=== PATIENT | male | born 1950 | race Caucasian/White ===

== ENCOUNTER → 2016-08-30 | Outpatient (CLI) | payer MEDICARE, BC ==
[2016-08-30 09:05] LABS: ABSOLUTE EOSINOPHILS # (AUTO) 0.3 10^3/uL (0.0-0.6); ABSOLUTE MONOCYTES (AUTO) 0.8 10^3/uL (0.1-1.4); ABSOLUTE NEUT (AUTO) 6.4 10^3/uL (1.7-8.2); BASOPHILS % (AUTO) 0.4 % (0-2); HEMATOCRIT 47.5 % (37.9-51.0); HEMOGLOBIN 16.1 g/dL (13.5-17.0); HGB HCT DIFFERENCE 0.8; LYMPHOCYTES % (AUTO) 20.8 % (13-45); MEAN CORPUSCULAR HEMOGLOBIN 32.9 pg (27.0-33.4); MEAN CORPUSCULAR HGB CONC 33.8 g/dL (32.0-36.0); MEAN CORPUSCULAR VOLUME 97 fl (80-97); MONOCYTES % (AUTO) 8.9 % (3-13); RED BLOOD COUNT 4.88 10^6/uL (4.35-5.55); RED CELL DISTRIBUTION WIDTH 13.1 % (11.5-14.0); SEGMENTED NEUTROPHILS % (AUTO) 66.9 % (42-78); WHITE BLOOD COUNT 9.5 10^3/uL (4.0-10.5)
[2016-08-30 09:21] LABS: ALANINE AMINOTRANSFERASE 116 U/L (21-72); ALBUMIN 4.4 g/dL (3.5-5.0); ALKALINE PHOSPHATASE 71 U/L (38-126); ANION GAP 9 (5-19); ASPARTATE AMINO TRANSFERASE 68 U/L (17-59); BILIRUBIN,TOTAL 1.1 mg/dL (0.2-1.3); BLOOD UREA NITROGEN 12 mg/dL (7-20); CALCIUM 10.2 mg/dL (8.4-10.2); CARBON DIOXIDE 28 mmol/L (22-30); CHLORIDE 100 mmol/L (98-107); CHOLESTEROL 247.83 mg/dL (0-200); CREATININE RESULT 0.99 mg/dL (0.52-1.25); Direct HDL 59 mg/dL (>40); GLUCOSE 107 mg/dL (75-110); POTASSIUM 4.9 mmol/L (3.6-5.0); SODIUM 137.3 mmol/L (137-145); TOTAL PROTEIN 7.4 g/dL (6.3-8.2); TRIGLYCERIDES 66 mg/dL (<150)
[2016-08-30 09:32] LABS: DIRECT LDL 164 mg/dL (<100)
== END ==
LOC: OD 08:19
PROVIDERS: ATTEND Family Medicine
DX: Z79.899 Other long term (current) drug therapy (principal); E78.5 Hyperlipidemia, unspecified; R73.9 Hyperglycemia, unspecified
CPT/HCPCS: 36415; 80053; 80061; 83036; 84443; 85025

== ENCOUNTER → 2017-09-10 | Outpatient (CLI) | payer MEDICARE, BC ==
[2017-09-10 09:09] LABS: ABSOLUTE EOSINOPHILS # (AUTO) 0.2 10^3/uL (0.0-0.6); ABSOLUTE MONOCYTES (AUTO) 0.7 10^3/uL (0.1-1.4); ABSOLUTE NEUT (AUTO) 5.3 10^3/uL (1.7-8.2); BASOPHILS % (AUTO) 0.5 % (0-2); EOSINOPHILS % (AUTO) 2.1 % (0-6); HEMATOCRIT 49.4 % (37.9-51.0); HEMOGLOBIN 16.6 g/dL (13.5-17.0); LYMPHOCYTES % (AUTO) 24.1 % (13-45); MEAN CORPUSCULAR HEMOGLOBIN 33.1 pg (27.0-33.4); MEAN CORPUSCULAR HGB CONC 33.6 g/dL (32.0-36.0); MEAN CORPUSCULAR VOLUME 99 fl (80-97); MONOCYTES % (AUTO) 8.2 % (3-13); PLATELET COUNT 264 10^3/uL (150-450); RED CELL DISTRIBUTION WIDTH 13.3 % (11.5-14.0); SEGMENTED NEUTROPHILS % (AUTO) 65.1 % (42-78); TOTAL CELLS COUNTED % (AUTO) 100 %; WHITE BLOOD COUNT 8.1 10^3/uL (4.0-10.5)
[2017-09-10 09:33] LABS: ALANINE AMINOTRANSFERASE 103 U/L (21-72); ALBUMIN 4.4 g/dL (3.5-5.0); ALKALINE PHOSPHATASE 78 U/L (38-126); ANION GAP 9 (5-19); ASPARTATE AMINO TRANSFERASE 65 U/L (17-59); BILIRUBIN,DIRECT 0.5 mg/dL (0.0-0.4); BLOOD UREA NITROGEN 12 mg/dL (7-20); CALCIUM 10.2 mg/dL (8.4-10.2); CARBON DIOXIDE 28 mmol/L (22-30); CHLORIDE 101 mmol/L (98-107); GLUCOSE 110 mg/dL (75-110); POTASSIUM 4.7 mmol/L (3.6-5.0); TOTAL PROTEIN 7.4 g/dL (6.3-8.2); TRIGLYCERIDES 84 mg/dL (<150)
[2017-09-10 09:44] LABS: DIRECT LDL 163 mg/dL (<100)
== END ==
LOC: OD 07:50
PROVIDERS: ATTEND Family Medicine
DX: E78.5 Hyperlipidemia, unspecified (principal); R73.9 Hyperglycemia, unspecified; Z12.5 Encounter for screening for malignant neoplasm of prostate; B18.2 Chronic viral hepatitis C; Z79.82 Long term (current) use of aspirin
CPT/HCPCS: 36415; 84443; 85025; 80076; 80048; 83036; 80061; G0103

== ENCOUNTER 2017-11-05 10:26 | Emergency (ER) | payer MEDICARE, BC ==
--- NOTE | 2017-11-05 10:45 | ER Document Report ---
ED Medical Screen (RME) - General Chief Complaint: Abdominal Pain Stated Complaint: STOMACH PAIN Time Seen by Provider: 11/05/17 10:39 Notes: 67-year-old male with history of bladder cancer now followed by urologist at [facility], presents with 1 day of worsening suprapubic pain and is worse with palpation and movement. Took his home [place] prior to arrival and declines additional pain medicine at this time. PE: Suprapubic tenderness. I have greeted and performed a rapid initial assessment of this patient. A comprehensive ED assessment and evaluation of the patient, analysis of test results and completion of the medical decision making process will be conducted by additional ED providers. TRAVEL OUTSIDE OF THE [place] IN LAST 30 DAYS: No - Related Data Allergies/Adverse Reactions: No Known Allergies Allergy (Verified 11/01/15 08:58) Past Medical History - Social History Chew tobacco use (# tins/day): No Frequency of alcohol use: None Drug Abuse: None - Past Medical History Cardiac Medical History: Reports: Hx Coronary Artery Disease - Stent 2001, Hx Heart Attack - 2001, Hx Hypercholesterolemia Denies: Hx Hypertension Pulmonary Medical History: Reports: Hx Asthma - CHILDHOOD, Hx COPD Denies: Hx Bronchitis, Hx Pneumonia Neurological Medical History: Denies: Hx Cerebrovascular Accident, Hx Seizures Renal/ Medical History: Denies: Hx Peritoneal Dialysis Musculoskeltal Medical History: Reports Hx Arthritis - Rheumatoid in back, pelvis, hips Past Surgical History: Reports: Hx Appendectomy, Hx Cardiac Catheterization - 1X stent, Hx Tonsillectomy - Immunizations Hx Diphtheria, Pertussis, Tetanus Vaccination: Yes Physical Exam - Vital signs Vitals: Temp Pulse Resp BP Pulse Ox 98.3 F 82 20 148/90 H 93 11/05/17 10:29 11/05/17 10:11/05/17 10:11/05/17 10:29 11/05/17 10:29 Course - Vital Signs Vital signs: Temp Pulse Resp BP Pulse Ox 98.3 F 82 20 148/90 H 93 11/05/17 10:29 11/05/17 10:29 11/05/17 10:29 11/05/17 10:29 11/05/17 10:29
[2017-11-05 11:17] LABS: APPEARANCE,URINE CLEAR; BILIRUBIN,URINE NEGATIVE (NEGATIVE); COLOR,URINE YELLOW; GLUCOSE, URINE NEGATIVE (NEGATIVE); KETONES,URINE NEGATIVE (NEGATIVE); LEUKOCYTE ESTERASE,URINE NEGATIVE (NEGATIVE); NITRITE,URINE NEGATIVE (NEGATIVE); PROTEIN,URINE NEGATIVE (NEGATIVE); URINE SPECIFIC GRAVITY 1.018
[2017-11-05 11:21] LABS: ABSOLUTE BASOPHILS # (AUTO) 0.1 10^3/uL (0.0-0.2); ABSOLUTE EOSINOPHILS # (AUTO) 0.2 10^3/uL (0.0-0.6); ABSOLUTE LYMPHOCYTES (AUTO) 2.4 10^3/uL (0.5-4.7); ABSOLUTE MONOCYTES (AUTO) 1.1 10^3/uL (0.1-1.4); BASOPHILS % (AUTO) 0.7 % (0-2); EOSINOPHILS % (AUTO) 1.7 % (0-6); HEMATOCRIT 50.4 % (37.9-51.0); HEMOGLOBIN 17.2 g/dL (13.5-17.0); LYMPHOCYTES % (AUTO) 20.5 % (13-45); MEAN CORPUSCULAR HEMOGLOBIN 33.1 pg (27.0-33.4); MEAN CORPUSCULAR HGB CONC 34.1 g/dL (32.0-36.0); MEAN CORPUSCULAR VOLUME 97 fl (80-97); MONOCYTES % (AUTO) 9.5 % (3-13); PLATELET COUNT 269 10^3/uL (150-450); RED BLOOD COUNT 5.18 10^6/uL (4.35-5.55); RED CELL DISTRIBUTION WIDTH 13.3 % (11.5-14.0); SEGMENTED NEUTROPHILS % (AUTO) 67.6 % (42-78); TOTAL CELLS COUNTED % (AUTO) 100 %; WHITE BLOOD COUNT 11.8 10^3/uL (4.0-10.5)
--- NOTE | 2017-11-05 11:23 | ER Document Report ---
ED General - General Chief Complaint: Abdominal Pain Stated Complaint: STOMACH PAIN Time Seen by Provider: 11/05/17 10:39 Mode of Arrival: Ambulatory Information source: Patient Notes: 67-year-old male presents with complaints of left lower quadrant abdominal pain. Patient notes pain started about 3 days ago worsened last night. Patient denies any fevers or chills, denies any nausea vomiting or diarrhea. Patient denies any urinary complaints TRAVEL OUTSIDE OF THE [place] IN LAST 30 DAYS: No - HPI Onset: Other - 3 day duration Onset/Duration: Persistent Quality of pain: Sharp Severity: Mild Pain Level: 1 Associated symptoms: Other Exacerbated by: Denies Relieved by: Denies Similar symptoms previously: No Recently seen / treated by doctor: No - Related Data Allergies/Adverse Reactions: No Known Allergies Allergy (Verified 11/01/15 08:58) Past Medical History - Social History Smoking Status: Former Smoker Cigarette use (# per day): No Chew tobacco use (# tins/day): No Smoking Education Provided: No Frequency of alcohol use: None Drug Abuse: None Family History: Reviewed & Not Pertinent Patient has suicidal ideation: No Patient has homicidal ideation: No - Past Medical History Cardiac Medical History: Reports: Hx Coronary Artery Disease - Stent 2001, Hx Heart Attack - 2001, Hx Hypercholesterolemia Denies: Hx Hypertension Pulmonary Medical History: Reports: Hx Asthma - CHILDHOOD, Hx COPD Denies: Hx Bronchitis, Hx Pneumonia Neurological Medical History: Denies: Hx Cerebrovascular Accident, Hx Seizures Renal/ Medical History: Denies: Hx Peritoneal Dialysis Musculoskeltal Medical History: Reports Hx Arthritis - Rheumatoid in back, pelvis, hips Past Surgical History: Reports: Hx Appendectomy, Hx Cardiac Catheterization - 1X stent, Hx Tonsillectomy - Immunizations Hx Diphtheria, Pertussis, Tetanus Vaccination: Yes Hx Pneumococcal Vaccination: 06/29/11 Review of Systems - Review of Systems Notes: REVIEW OF SYSTEMS: CONSTITUTIONAL : Denies fever, chills, or sweats. Denies recent illness. EENT: Denies eye, ear, throat, or mouth pain or symptoms. Denies nasal or sinus congestion or discharge. Denies throat, tongue, or mouth swelling or difficulty swallowing. CARDIOVASCULAR: Denies chest pain. Denies palpitations or racing or irregular heart beat. Denies ankle edema. RESPIRATORY: Denies cough, cold, or chest congestion. Denies shortness of breath, difficulty breathing, or wheezing. GASTROINTESTINAL: Left lower quadrant pain GENITOURINARY: Denies difficulty urinating, painful urination, burning, frequency, blood in urine, or discharge. MUSCULOSKELETAL: Denies back or neck pain or stiffness. Denies joint pain or swelling. SKIN: Denies rash, lesions or sores. HEMATOLOGIC : Denies easy bruising or bleeding. LYMPHATIC: Denies swollen, enlarged glands. NEUROLOGICAL: Denies confusion or altered mental status. Denies passing out or loss of consciousness. Denies dizziness or lightheadedness. Denies headache. Denies weakness or paralysis or loss of use of either side. Denies problems with gait or speech. Denies sensory loss, numbness, or tingling. Denies seizures. PSYCHIATRIC: Denies anxiety or stress. Denies depression, suicidal ideation, or homicidal ideation. ALL OTHER SYSTEMS REVIEWED AND NEGATIVE. Dictation was performed using [employer] voice recognition software PHYSICAL EXAMINATION: GENERAL: Well-appearing, well-nourished and in no acute distress. HEAD: Atraumatic, normocephalic. EYES: Pupils equal round and reactive to light, extraocular movements intact, sclera anicteric, conjunctiva are normal. ENT: Nares patent, oropharynx clear without exudates. Moist mucous membranes. NECK: Normal range of motion, supple without lymphadenopathy LUNGS: Breath sounds clear to auscultation bilaterally and equal. No wheezes rales or rhonchi. HEART: Regular rate and rhythm without murmurs ABDOMEN: Soft, mild tenderness left lower quadrant no rebound or guarding Musculoskeletal: Normal range of motion, no pitting or edema. No cyanosis. NEUROLOGICAL: Cranial nerves grossly intact. Normal speech, normal gait. Normal sensory, motor exams PSYCH: Normal mood, normal affect. SKIN: Warm, Dry, normal turgor, no rashes or lesions noted. Physical Exam - Vital signs Vitals: Temp Pulse Resp BP Pulse Ox 98.3 F 82 20 148/90 H 93 11/05/17 10:29 11/05/17 10:29 11/05/17 10:29 11/05/17 10:29 11/05/17 10:29 Course - Re-evaluation Re-evalutation: 11/05/17 11:22 Patient has a history of bladder cancer, CT is pending as well as lab work overall he looks benign does not want any pain control at this time 11/05/17 15:[address] is consistent with diverticulitis, patient afterwards admits to history of diverticulosis based on colonoscopy. He will be treated with antibiotics given very strict return precautions After performing a Medical Screening Examination, I estimate there is LOW risk for ACUTE APPENDICITIS, BOWEL OBSTRUCTION, ACUTE CHOLECYSTITIS, PERFORATED DIVERTICULITIS, INCARCERATED HERNIA, PANCREATITIS, TESTICULAR TORSION or PERFORATED ULCER, thus I consider the discharge disposition reasonable. Also, there is no evidence or peritonitis, sepsis, or toxicity. I have reevaluated this patient multiple times and no significant life threatening changes are noted. The patient and I have discussed the diagnosis and risks, and we agree with discharging home with close follow-up with the understanding that symptoms and presentations can change. We also discussed returning to the Emergency Department immediately if new or worsening symptoms occur. We have discussed the symptoms which are most concerning (e.g., bloody stool, fever, changing or worsening pain, intractable vomiting - standard verbal up date) that necessitate immediate return. - Vital Signs Vital signs: Temp Pulse Resp BP Pulse Ox 97.8 F 68 18 150/95 H 93 11/05/17 14:45 11/05/17 14:45 11/05/17 14:45 11/05/17 14:45 11/05/17 10:29 - Laboratory Result Diagrams: 11/05/17 10:45 11/05/17 10:45 Laboratory results interpreted by me: 11/05/17 11/05/17 11/05/17 10:33 10:45 10:45 WBC 11.8 H Hgb 17.2 H Calcium 10.4 H Direct Bilirubin 0.5 H AST 83 H ALT 140 H Urine Blood MODERATE H Urine Urobilinogen 2.0 H - Diagnostic Test Radiology reviewed: Image reviewed - CT abdomen pelvis with IV contrast is consistent with diverticulitis, Reports reviewed Discharge - Discharge Clinical Impression: Diverticulitis Abdominal pain Qualifiers: Abdominal location: left lower quadrant Qualified Code(s): R10.32 - Left lower quadrant pain Condition: Stable Disposition: HOME, SELF-CARE Instructions: Diverticulitis ([facility]) Prescriptions: Ciprofloxacin HCl [Cipro 500 mg Tablet] 500 mg PO BID #20 tablet Metoclopramide HCl [Reglan 10 mg Tablet] 1 - 2 tab PO ASDIR PRN #25 tablet PRN Reason: Metronidazole [Flagyl 500 mg Tablet] 500 mg PO Q8 #30 tablet Referrals: DENIS QUINN MD [Primary Care Provider] - Follow up as needed
[2017-11-05 11:51] LABS: ALANINE AMINOTRANSFERASE 140 U/L (21-72); ALBUMIN 4.8 g/dL (3.5-5.0); ALKALINE PHOSPHATASE 100 U/L (38-126); ANION GAP 13 (5-19); ASPARTATE AMINO TRANSFERASE 83 U/L (17-59); BILIRUBIN,DIRECT 0.5 mg/dL (0.0-0.4); BILIRUBIN,TOTAL 1.1 mg/dL (0.2-1.3); BLOOD UREA NITROGEN 13 mg/dL (7-20); CALCIUM 10.4 mg/dL (8.4-10.2); CARBON DIOXIDE 29 mmol/L (22-30); CHLORIDE 100 mmol/L (98-107); GLUCOSE 89 mg/dL (75-110); SODIUM 141.7 mmol/L (137-145); TOTAL PROTEIN 8.1 g/dL (6.3-8.2)
--- NOTE | 2017-11-05 13:43 | RADIOLOGY REPORT (SQ) ---
EXAM DESCRIPTION: CT ABD/PELVIS WITH IV ONLY COMPLETED DATE/TIME: 11/05/2017 12:40 pm REASON FOR STUDY: LLQ pain COMPARISON: None. TECHNIQUE: CT scan of the abdomen and pelvis performed using helical scanning technique with dynamic intravenous contrast injection. No oral contrast. Images reviewed with lung, soft tissue, and bone windows. Reconstructed coronal and sagittal MPR images reviewed. Delayed images for evaluation of the urinary system also acquired. All images stored on PACS. All CT scanners at this facility use dose modulation, iterative reconstruction, and/or weight based d osing when appropriate to reduce radiation dose to as low as reasonably achievable (ALARA). [facility]: Dose Right [facility]: CareDose [facility]: Dose Right [facility]: Teradose 4D [facility]: [employer] CONTRAST TYPE AND DOSE: contrast/concentration: Isovue 370.00 mg/ml; Total Contrast Delivered: 75.0 ml; Total Saline Delivered: 67.0 ml RENAL FUNCTION: Creatinine 0.98 RADIATION DOSE: CT Rad equipment meets quality standard of care and radiation dose reduction techniq ues were employed. CTDIvol: 6.1 - 8.3 mGy. DLP: 747 mGy-cm.. LIMITATIONS: None. FINDINGS: LOWER CHEST: No significant findings. No nodules or infiltrates. LIVER: Normal size. No masses. No dilated ducts. SPLEEN: Normal size. No focal lesions. PANCREAS: No masses. No significant calcifications. No adjacent inflammation or peripancreatic fluid collections. Pancreatic duct not dilated. GALLBLADDER: No identified stones by CT criteria. No inflammatory changes to suggest cholecystitis. ADRENAL GLANDS: No significant masses or asymmetry. RIGHT KIDNEY AND URETER: No solid masses. No significant calcifications. No hydronephrosis or hyd roureter. LEFT KIDNEY AND URETER: No solid masses. No significant calcifications. No hydronephrosis or hydr oureter. AORTA AND VESSELS: No aneurysm. No dissection. There is mild ectasia of the abdominal aorta and santy c vessels with vascular calcifications. Renal arteries, SMA, celiac without stenosis. RETROPERITONEUM: No retroperitoneal adenopathy, hemorrhage or masses. BOWEL AND PERITONEAL CAVITY: Multiple diverticular are identified in the sigmoid colon. There appear s to be some thickening of the giraldo of a short segment of sigmoid colon in the left pelvis with subt le edematous or inflammatory changes in the adjacent mesenteric fat. The possibility of diverticulit is should be considered. Clinical correlation is recommended. No free fluid or peritoneal masses. APPENDIX: Status post appendectomy. PELVIS: No mass. No free fluid. Normal bladder. ABDOMINAL WALL: No masses. No hernias. BONES: No significant or acute findings. OTHER: No other significant finding. IMPRESSION: Findings suspicious for diverticulitis involving a short segment of sigmoid colon as not ed above. Clinical correlation is recommended. Other findings as noted above. TECHNICAL DOCUMENTATION: JOB ID: [id number] Quality ID # [id number]: Final reports with documentation of one or more dose reduction techniques (e.g., Au tomated exposure control, adjustment of the mA and/or kV according to patient size, use of iterative reconstruction technique) 2010 [employer]- All Rights Reserved Reading location - IP/workstation name: [email or web address]
[2017-11-05 14:50] VITALS: BP 150/95
== END 2017-11-05 14:50 | disposition home or self-care (01) ==
LOC: ER 10:26
DX: K57.92 Diverticulitis of intestine, part unspecified, without perforation or abscess without bleeding (principal); R10.32 Left lower quadrant pain; F17.200 Nicotine dependence, unspecified, uncomplicated; E78.00 Pure hypercholesterolemia, unspecified; I25.10 Atherosclerotic heart disease of native coronary artery without angina pectoris; I25.2 Old myocardial infarction
CPT/HCPCS: 36415; 74177; 80053; 81001; 85025; 99284

== ENCOUNTER → 2018-02-19 | Outpatient (CLI) | payer MEDICARE, BC ==
[2018-02-19 08:41] LABS: ABSOLUTE EOSINOPHILS # (AUTO) 0.1 10^3/uL (0.0-0.6); ABSOLUTE MONOCYTES (AUTO) 0.8 10^3/uL (0.1-1.4); ABSOLUTE NEUT (AUTO) 5.7 10^3/uL (1.7-8.2); BASOPHILS % (AUTO) 0.4 % (0-2); EOSINOPHILS % (AUTO) 1.5 % (0-6); HEMATOCRIT 47.8 % (37.9-51.0); HEMOGLOBIN 16.3 g/dL (13.5-17.0); MEAN CORPUSCULAR HEMOGLOBIN 33.6 pg (27.0-33.4); MEAN CORPUSCULAR HGB CONC 34.1 g/dL (32.0-36.0); MEAN CORPUSCULAR VOLUME 98 fl (80-97); MONOCYTES % (AUTO) 9.5 % (3-13); PLATELET COUNT 284 10^3/uL (150-450); RED BLOOD COUNT 4.86 10^6/uL (4.35-5.55); RED CELL DISTRIBUTION WIDTH 13.6 % (11.5-14.0); SEGMENTED NEUTROPHILS % (AUTO) 65.6 % (42-78); TOTAL CELLS COUNTED % (AUTO) 100 %; WHITE BLOOD COUNT 8.7 10^3/uL (4.0-10.5)
[2018-02-19 09:03] LABS: ALANINE AMINOTRANSFERASE 122 U/L (21-72); ALBUMIN 4.3 g/dL (3.5-5.0); ALKALINE PHOSPHATASE 83 U/L (38-126); ANION GAP 11 (5-19); ASPARTATE AMINO TRANSFERASE 82 U/L (17-59); BILIRUBIN,DIRECT 0.3 mg/dL (0.0-0.4); BILIRUBIN,TOTAL 0.5 mg/dL (0.2-1.3); BLOOD UREA NITROGEN 16 mg/dL (7-20); CARBON DIOXIDE 28 mmol/L (22-30); CHLORIDE 102 mmol/L (98-107); CHOLESTEROL 200.65 mg/dL (0-200); GLUCOSE 108 mg/dL (75-110); POTASSIUM 5.5 mmol/L (3.6-5.0); TOTAL PROTEIN 7.3 g/dL (6.3-8.2); TRIGLYCERIDES 64 mg/dL (<150)
[2018-02-19 09:14] LABS: DIRECT LDL 123 mg/dL (<100)
== END ==
LOC: OD 07:42
PROVIDERS: ATTEND Family Medicine
DX: E78.5 Hyperlipidemia, unspecified (principal); R73.9 Hyperglycemia, unspecified; Z79.899 Other long term (current) drug therapy; Z79.891 Long term (current) use of opiate analgesic
CPT/HCPCS: 36415; 80053; 80061; 83036; 85025

== ENCOUNTER → 2018-02-24 | Outpatient (CLI) | payer MEDICARE, BC ==
--- NOTE | 2018-02-24 11:21 | RADIOLOGY REPORT (SQ) ---
EXAM DESCRIPTION: CHEST PA/LATERAL COMPLETED DATE/TIME: 02/24/2018 11:09 am REASON FOR STUDY: WHEEZING COMPARISON: 11/01/2015 EXAM PARAMETERS: NUMBER OF VIEWS: two views TECHNIQUE: Digital Frontal and Lateral radiographic views of the chest acquired. RADIATION DOSE: NA LIMITATIONS: none FINDINGS: LUNGS AND PLEURA: No opacities, masses or pneumothorax. No pleural effusion. MEDIASTINUM AND HILAR STRUCTURES: No masses or contour abnormalities. HEART AND VASCULAR STRUCTURES: Heart normal size. No evidence for failure. BONES: No acute findings. HARDWARE: None in the chest. OTHER: No other significant finding. IMPRESSION: NO SIGNIFICANT RADIOGRAPHIC FINDING IN THE CHEST. TECHNICAL DOCUMENTATION: JOB ID: [id number] [employer]- All Rights Reserved Reading location - IP/workstation name: [email or web address]
== END ==
LOC: OD 10:32
PROVIDERS: ATTEND Family Medicine
DX: E87.5 Hyperkalemia (principal); R06.2 Wheezing
CPT/HCPCS: 36415; 71046; 84132

== ENCOUNTER → 2018-09-03 | Outpatient (CLI) | payer MEDICARE, BC ==
[2018-09-03 08:48] LABS: ABSOLUTE EOSINOPHILS # (AUTO) 0.2 10^3/uL (0.0-0.6); ABSOLUTE LYMPHOCYTES (AUTO) 2.2 10^3/uL (0.5-4.7); ABSOLUTE MONOCYTES (AUTO) 0.8 10^3/uL (0.1-1.4); BASOPHILS % (AUTO) 0.6 % (0-2); EOSINOPHILS % (AUTO) 1.9 % (0-6); HEMATOCRIT 49.6 % (37.9-51.0); HEMOGLOBIN 17.3 g/dL (13.5-17.0); LYMPHOCYTES % (AUTO) 26.4 % (13-45); MEAN CORPUSCULAR HEMOGLOBIN 34.4 pg (27.0-33.4); MEAN CORPUSCULAR HGB CONC 34.8 g/dL (32.0-36.0); MEAN CORPUSCULAR VOLUME 99 fl (80-97); MONOCYTES % (AUTO) 9.4 % (3-13); PLATELET COUNT 283 10^3/uL (150-450); RED BLOOD COUNT 5.02 10^6/uL (4.35-5.55); RED CELL DISTRIBUTION WIDTH 13.3 % (11.5-14.0); SEGMENTED NEUTROPHILS % (AUTO) 61.7 % (42-78); TOTAL CELLS COUNTED % (AUTO) 100 %; WHITE BLOOD COUNT 8.2 10^3/uL (4.0-10.5)
[2018-09-03 09:18] LABS: ALANINE AMINOTRANSFERASE 121 U/L (21-72); ALBUMIN 4.6 g/dL (3.5-5.0); ALKALINE PHOSPHATASE 94 U/L (38-126); ANION GAP 8 (5-19); ASPARTATE AMINO TRANSFERASE 94 U/L (17-59); BILIRUBIN,DIRECT 0.4 mg/dL (0.0-0.4); BILIRUBIN,TOTAL 0.9 mg/dL (0.2-1.3); BLOOD UREA NITROGEN 12 mg/dL (7-20); CALCIUM 10.4 mg/dL (8.4-10.2); CARBON DIOXIDE 30 mmol/L (22-30); CHLORIDE 100 mmol/L (98-107); CHOLESTEROL 204.29 mg/dL (0-200); GLUCOSE 117 mg/dL (75-110); SODIUM 137.5 mmol/L (137-145); TOTAL PROTEIN 7.6 g/dL (6.3-8.2); TRIGLYCERIDES 54 mg/dL (<150)
[2018-09-03 09:29] LABS: DIRECT LDL 142 mg/dL (<100)
== END ==
LOC: OD 08:02
PROVIDERS: ATTEND Family Medicine
DX: E78.5 Hyperlipidemia, unspecified (principal); J45.30 Mild persistent asthma, uncomplicated
CPT/HCPCS: 36415; 80048; 80061; 80076; 84443; 85025

== ENCOUNTER 2019-04-26 12:01 | Emergency (ER) | payer MEDICARE, BC ==
[2019-04-26 12:05] VITALS: BP 155/87
[2019-04-26] MEDS ORDERED: DIPH/PERTUSS(ACELL)/TETANUS VAC/PF 0.5 ML SYR (>=10YO) IM ONE (12:21)
--- NOTE | 2019-04-26 12:25 | ER Document Report ---
HPI - HPI Time Seen by Provider: 04/26/19 12:08 Context: Patient is a 68-year-old male who presents to the emergency department with a Bite to his left hand. He was playing with his cat yesterday afternoon and ended up getting bitten by them. Patient states that he cleaned it up and put some bacitracin on it and then this morning he was playing golf and around the fifth round of golf he ended up having pain to the area. He noticed a little bit of redness to the area. Patient's cat is up-to-date on their immunizations. Patient is able to move his hand with no difficulty. Patient is unsure as to when his last tetanus vaccine was. - CONSTITUTIONAL Constitutional: DENIES: Fever, Chills - EENT EENT: DENIES: Sore Throat, Ear Pain - NEURO Neurology: DENIES: Headache, Weakness - RESPIRATORY Respiratory: DENIES: Coughing - REPRODUCTIVE Reproductive: DENIES: : - MUSCULOSKELETAL Musculoskeletal: REPORTS: Extremity pain - Posterior left hand - DERM Skin Color: Normal Skin Problems: Laceration - Posterior left hand, Rash - Posterior left hand Past Medical History - Social History Smoking Status: Current Every Day Smoker Frequency of alcohol use: Daily Family History: Reviewed & Not Pertinent - Past Medical History Cardiac Medical History: Reports: Hx Coronary Artery Disease - Stent 2001, Hx Heart Attack - 2001, Hx Hypercholesterolemia Denies: Hx Hypertension Pulmonary Medical History: Reports: Hx Asthma - CHILDHOOD, Hx COPD Denies: Hx Bronchitis, Hx Pneumonia Neurological Medical History: Denies: Hx Cerebrovascular Accident, Hx Seizures Renal/ Medical History: Denies: Hx Peritoneal Dialysis Musculoskeletal Medical History: Reports Hx Arthritis - Rheumatoid in back, pelvis, hips Past Surgical History: Reports: Hx Appendectomy, Hx Cardiac Catheterization - 1X stent, Hx Tonsillectomy - Immunizations Hx Diphtheria, Pertussis, Tetanus Vaccination: Yes Hx Pneumococcal Vaccination: 06/29/11 Vertical Provider Document - CONSTITUTIONAL Agree With Documented VS: Yes Exam Limitations: No Limitations General Appearance: No Apparent Distress - INFECTION CONTROL TRAVEL OUTSIDE OF THE [place] IN LAST 30 DAYS: No - HEENT HEENT: Atraumatic, Normocephalic, PERRLA - RESPIRATORY Respiratory: No Respiratory Distress - CARDIOVASCULAR Cardiovascular: Regular Rhythm Pulses: Normal: Radial - MUSCULOSKELETAL/EXTREMETIES Musculoskeletal/Extremeties: FROM, Tender - posterior left hand - NEURO Level of Consciousness: Awake, Alert, Appropriate - DERM Integumentary: Warm, Dry, Rash - Erythema to posterior left hand near cat bite, Laceration - posterior left hand from cat bite Course - Re-evaluation Re-evalutation: 04/26/19 12:26 Patient has good flexion and extension of all digits. A very low suspicion for a tendon rupture. Patient will be placed on Augmentin for his cat bite. Patient will follow-up with his primary care provider in 1 week. Follow-up precautions were given. Verbal discharge instructions were given to the patient. They verbalized understanding. They are stable for discharge. - Vital Signs Vital signs: Temp Pulse Resp BP Pulse Ox 98.2 F 79 16 155/87 H 96 04/26/19 12:04 04/26/19 12:04 04/26/19 12:04 04/26/19 12:04 04/26/19 12:04 Discharge - Discharge Clinical Impression: Cat bite Qualifiers: Encounter type: initial encounter Qualified Code(s): W55.01XA - Bitten by cat, initial encounter Condition: Stable Disposition: HOME, SELF-CARE Additional Instructions: Please monitor very closely for any signs of infection from your cat bite including spreading redness from the area, pus from the wound, or worsening pain. Clean the area twice daily with soap and water and then apply topical antibiotic ointment. Please take all the antibiotics that you were prescribed until they are gone. Follow-up with your primary care physician as needed. Prescriptions: Amox Tr/Potassium Clavulanate [Augmentin 875-125 Tablet] 1 tab PO BID 7 Days #14 tablet Referrals: ALINA BHATIA MD [Primary Care Provider] - Follow up in 1 week
== END 2019-04-26 12:43 | disposition home or self-care (01) ==
LOC: ER 12:01
DX: S61.452A Open bite of left hand, initial encounter (principal); W55.01XA Bitten by cat, initial encounter; F17.200 Nicotine dependence, unspecified, uncomplicated; Z23 Encounter for immunization
CPT/HCPCS: 90471; 90715; 99283

== ENCOUNTER 2019-04-27 11:34 | Inpatient (IN) | payer MEDICARE, BC ==
--- NOTE | 2019-04-27 11:52 | ER Document Report ---
ED Medical Screen (RME) - General Chief Complaint: Cat Bite Stated Complaint: HARMEET BITE Time Seen by Provider: 04/27/19 11:49 Primary Care Provider: ALINA BHATIA MD [Primary Care Provider] - Follow up as needed Mode of Arrival: Ambulatory Information source: Patient Notes: 68-year-old male presents to the emergency department with cat bite to his left hand. He reports he was bit Thursday by his cat who is an indoor cat and has all her vaccinations intact. Came to the emergency department on Thursday. Was prescribed Augmentin. Has taken 3 doses. Returns today with increased pain erythema and warmth to the hand going up the left wrist. I have greeted and performed a rapid initial assessment of this patient. A comprehensive ED assessment and evaluation of the patient, analysis of test results and completion of the medical decision making process will be conducted by additional ED providers. Dictation of this chart was performed using voice recognition software; therefore, there may be some unintended grammatical errors. TRAVEL OUTSIDE OF THE [place] IN LAST 30 DAYS: No - Related Data Allergies/Adverse Reactions: No Known Allergies Allergy (Verified 04/27/19 11:44) Home Medications: augmentin, asa, aciphex, hydrocodone Past Medical History - Social History Chew tobacco use (# tins/day): No Frequency of alcohol use: Social Drug Abuse: None - Past Medical History Cardiac Medical History: Reports: Hx Coronary Artery Disease - Stent 2001, Hx Heart Attack - 2001, Hx Hypercholesterolemia Denies: Hx Hypertension Pulmonary Medical History: Reports: Hx Asthma - CHILDHOOD, Hx COPD Denies: Hx Bronchitis, Hx Pneumonia Neurological Medical History: Denies: Hx Cerebrovascular Accident, Hx Seizures Renal/ Medical History: Denies: Hx Peritoneal Dialysis Musculoskeltal Medical History: Reports Hx Arthritis - Rheumatoid in back, pelvis, hips Past Surgical History: Reports: Hx Appendectomy, Hx Cardiac Catheterization - 1X stent, Hx Tonsillectomy - Immunizations Hx Diphtheria, Pertussis, Tetanus Vaccination: Yes Physical Exam - Vital signs Vitals: Temp Pulse Resp BP Pulse Ox 98.0 F 89 20 142/92 H 97 04/27/19 11:40 04/27/19 11:40 04/27/19 11:40 04/27/19 11:40 04/27/19 11:40 Course - Vital Signs Vital signs: Temp Pulse Resp BP Pulse Ox 98.0 F 89 20 142/92 H 97 04/27/19 11:40 04/27/19 11:40 04/27/19 11:40 04/27/19 11:40 04/27/19 11:40 Doctor's Discharge - Discharge Referrals: ALINA BHATIA MD [Primary Care Provider] - Follow up as needed
[2019-04-27 12:36] LABS: ABSOLUTE BASOPHILS # (AUTO) 0.1 10^3/uL (0.0-0.2); ABSOLUTE EOSINOPHILS # (AUTO) 0.2 10^3/uL (0.0-0.6); ABSOLUTE MONOCYTES (AUTO) 1.3 10^3/uL (0.1-1.4); ABSOLUTE NEUT (AUTO) 8.2 10^3/uL (1.7-8.2); BASOPHILS % (AUTO) 0.6 % (0-2); EOSINOPHILS % (AUTO) 1.8 % (0-6); HEMATOCRIT 48.7 % (37.9-51.0); HEMOGLOBIN 16.3 g/dL (13.5-17.0); LYMPHOCYTES % (AUTO) 17.4 % (13-45); MEAN CORPUSCULAR HEMOGLOBIN 33.1 pg (27.0-33.4); MEAN CORPUSCULAR HGB CONC 33.5 g/dL (32.0-36.0); MEAN CORPUSCULAR VOLUME 99 fl (80-97); MONOCYTES % (AUTO) 10.7 % (3-13); PLATELET COUNT 265 10^3/uL (150-450); RED BLOOD COUNT 4.93 10^6/uL (4.35-5.55); SEGMENTED NEUTROPHILS % (AUTO) 69.5 % (42-78); TOTAL CELLS COUNTED % (AUTO) 100 %; WHITE BLOOD COUNT 11.8 10^3/uL (4.0-10.5)
[2019-04-27 12:59] LABS: ALBUMIN 4.5 g/dL (3.5-5.0); ALKALINE PHOSPHATASE 84 U/L (38-126); ANION GAP 9 (5-19); ASPARTATE AMINO TRANSFERASE 51 U/L (17-59); BILIRUBIN,DIRECT 0.1 mg/dL (0.0-0.4); BILIRUBIN,TOTAL 1.4 mg/dL (0.2-1.3); BLOOD UREA NITROGEN 13 mg/dL (7-20); CALCIUM 9.8 mg/dL (8.4-10.2); CARBON DIOXIDE 29 mmol/L (22-30); CHLORIDE 99 mmol/L (98-107); POTASSIUM 4.3 mmol/L (3.6-5.0); TOTAL PROTEIN 7.8 g/dL (6.3-8.2)
[2019-04-27 13:01] LABS: GLUCOSE 68 mg/dL (75-110)
[2019-04-27] MEDS ORDERED: AMPICILLIN SOD/SULBACTAM 3 GM VIAL IV ONE (13:09)
--- NOTE | 2019-04-27 15:27 | ER Document Report ---
ED General - General Chief Complaint: Cat Bite Stated Complaint: HARMEET BITE Time Seen by Provider: 04/27/19 11:49 Primary Care Provider: ALINA BHATIA MD [Primary Care Provider] - Follow up as needed Mode of Arrival: Ambulatory TRAVEL OUTSIDE OF THE [place] IN LAST 30 DAYS: No - HPI Notes: Patient is a 68-year-old male with no significant past medical history aside from chronic back and neck pain who presents complaining of cat bite to his left hand 2 days ago. Patient states that he was evaluated here yesterday and was placed on Augmentin and given his tetanus shot. Patient states that he has had a few dose of Augmentin and woke up with worsening pain, redness, and red streaks going up his forearm. Denies drug allergies. Denies any headache, feve r, URI, sore throat, chest pain, palpitations, syncope, cough, shortness of breath, wheeze, dyspnea, abdominal pain, nausea/vomiting/diarrhea, urinary retention, dysuria, hematuria, numbness/tingling, muscle paralysis/weakness. - Related Data Allergies/Adverse Reactions: No Known Allergies Allergy (Verified 04/27/19 11:44) Home Medications: augmentin, asa, aciphex, hydrocodone Past Medical History - General Information source: Patient - Social History Smoking Status: Current Every Day Smoker Chew tobacco use (# tins/day): No Frequency of alcohol use: Social Drug Abuse: None Family History: Reviewed & Not Pertinent Patient has suicidal ideation: No Patient has homicidal ideation: No - Past Medical History Cardiac Medical History: Reports: Hx Coronary Artery Disease - Stent 2001, Hx Heart Attack - 2001, Hx Hypercholesterolemia Denies: Hx Hypertension Pulmonary Medical History: Reports: Hx Asthma - CHILDHOOD, Hx COPD Denies: Hx Bronchitis, Hx Pneumonia Neurological Medical History: Denies: Hx Cerebrovascular Accident, Hx Seizures Renal/ Medical History: Denies: Hx Peritoneal Dialysis Musculoskeletal Medical History: Reports Hx Arthritis - Rheumatoid in back, pelvis, hips Past Surgical History: Reports: Hx Appendectomy, Hx Cardiac Catheterization - 1X stent, Hx Tonsillectomy - Immunizations Hx Diphtheria, Pertussis, Tetanus Vaccination: Yes Hx Pneumococcal Vaccination: 06/29/11 Review of Systems - Review of Systems -: Yes All other systems reviewed and negative Physical Exam - Vital signs Vitals: Temp Pulse Resp BP Pulse Ox 98.0 F 89 20 142/92 H 97 10/30/19 11:40 04/27/19 11:40 04/27/19 11:40 04/27/19 11:40 04/27/19 11:40 - Notes Notes: PHYSICAL EXAMINATION: GENERAL: Well-appearing, well-nourished and in no acute distress. LUNGS: Breath sounds clear to auscultation bilaterally and equal. No wheezes rales or rhonchi. HEART: Regular rate and rhythm without murmurs, rubs, gallops. Musculoskeletal: Left hand/wrist: FROM to passive/active. Strength 5+/5. N/v intact distal. Extremities: No cyanosis, clubbing, or edema b/l. Peripheral pulses 2+. Capillary refill less than 3 seconds. NEUROLOGICAL: Cranial nerves grossly intact. Normal speech, normal gait. Normal sensory, motor exams PSYCH: Normal mood, normal affect. SKIN: Lt hand: there is significant warmth, erythema noted to the dorsal later al hand with puncture site noted. No abscess, fluctuance, induration. + 2 streaks from hand to antecubital space. + tenderness. Course - Re-evaluation Re-evalutation: 04/27/19 15:20 Dr. Abernathy also eval'd the patient and agrees with admit/plan. Patient is an afebrile, well-hydrated, 5-year-old male who presents with meningitis secondary to cat bite with cellulitis associated to the left hand. Vitals are currently acceptable. PE is otherwise unremarkable for any neurovascular compromise, obvious tendon/leg rupture, obvious fracture/dislocation, septic joint. There is no obvious abscess warranting incision and drainage at this time. Patient was given an IV dose of Unasyn. Tetanus was updated yesterday. I did speak with Ricky Rivera NP who accepted patient for admission to medical floor. - Vital Signs Vital signs: Temp Pulse Resp BP Pulse Ox 98.0 F 89 20 142/92 H 97 04/27/19 11:40 04/27/19 11:40 04/27/19 11:40 04/27/19 11:40 04/27/19 11:40 - Laboratory Result Diagrams: 04/27/19 12:09 04/27/19 12:09 Laboratory results interpreted by me: 04/27/19 04/27/19 12:09 12:09 WBC 11.8 H MCV 99 H Glucose 68 L Total Bilirubin 1.4 H Discharge - Discharge Clinical Impression: Lymphangitis, Cellulitis of left arm Cat bite Qualifiers: Encounter type: initial encounter Qualified Code(s): W55.01XA - Bitten by cat, initial encounter Condition: Stable Disposition: ADMITTED INPATIENT Admitting Provider: Tabby (Hospitalist) - Brandy Rivera Unit Admitted: Medical Floor Referrals: ALINA BHATIA MD [Primary Care Provider] - Follow up as needed
[2019-04-27] MEDS ORDERED: MAG HYDROX/AL HYDROX/SIMETH SUSP 30 ML UDCUP PO PRN (15:36)
[2019-04-27] MEDS ORDERED: ZOLPIDEM TARTRATE 5 MG TABLET PO PRN (15:36)
[2019-04-27] MEDS ORDERED: ACETAMINOPHEN 325 MG TABLET PO PRN (15:36)
[2019-04-27] MEDS ORDERED: ONDANSETRON HCL INJ/PF 4 MG/2 ML SDV IV PRN (15:36)
--- NOTE | 2019-04-27 15:50 | PDOC H&P ---
History of Present Illness Admission Date/PCP: 04/27/2019 ALINA BHATIA MD Patient complains of: Pain and swelling to the left wrist History of Present Illness: HALLEY MCGREGOR is a 68 year old male who was bitten 2 days ago in his left hand by his cat. Patient presented to the ER yesterday was placed on Augmentin and given a tetanus vaccination. Patient presented back to the ER today as he thought the cellulitis was worsening. He does have a small lymph node in his left axillary. He denies any associated symptoms including headache, fever, URI, sore throat. Had no other treatment prior to arrival no true aggravating factors. Past Medical History Cardiac Medical History: Reports: Coronary Artery Disease - Stent 2001, Myocardial Infarction - 2001, Hyperlipidema Denies: Hypertension Pulmonary Medical History: Reports: Asthma - CHILDHOOD, Chronic Obstructive Pulmonary Disease (COPD) Denies: Bronchitis, Pneumonia Neurological Medical History: Denies: Seizures Musculoskeltal Medical History: Reports: Arthritis - Rheumatoid in back, pelvis, hips Hematology: Denies: Anemia Past Surgical History Past Surgical History: Reports: Appendectomy, Cardiac Catheterization - 1X stent, Tonsillectomy Social History Information Source: Patient Lives with: Alone Smoking Status: Current Every Day Smoker Electronic Cigarette use?: No Frequency of Alcohol Use: Heavy Hx Recreational Drug Use: No Drugs: None Hx Prescription Drug Abuse: No - Advance Directive Resuscitation Status: Full Code Family History Family History: Hypertension Parental Family History Reviewed: Yes Children Family History Reviewed: Yes Sibling(s) Family History Reviewed.: Yes Medication/Allergy Allergies/Adverse Reactions: No Known Allergies Allergy (Verified 04/27/19 11:44) Review of Systems Constitutional: ABSENT: chills, fever(s), headache(s), weight gain, weight loss Eyes: ABSENT: visual disturbances Ears: ABSENT: hearing changes Cardiovascular: ABSENT: chest pain, dyspnea on exertion, edema, orthropnea, palpitations Respiratory: ABSENT: cough, hemoptysis Gastrointestinal: ABSENT: abdominal pain, constipation, diarrhea, hematemesis, hematochezia, nausea, vomiting Genitourinary: ABSENT: dysuria, hematuria Musculoskeletal: ABSENT: joint swelling Integumentary: PRESENT: other - Cellulitis of the left hand just proximal to the thumb with 2 roth wounds from bite. ABSENT: rash, wounds Neurological: ABSENT: abnormal gait, abnormal speech, confusion, dizziness, focal weakness, syncope Psychiatric: ABSENT: anxiety, depression, homidical ideation, suicidal ideation Endocrine: ABSENT: cold intolerance, heat intolerance, polydipsia, polyuria Hematologic/Lymphatic: ABSENT: easy bleeding, easy bruising Physical Exam Vital Signs: Temp Pulse Resp BP Pulse Ox 98.7 F 89 20 142/92 H 97 04/27/19 15:21 04/27/19 11:40 04/27/19 11:40 04/27/19 11:40 04/27/19 11:40 Intake & Output 04/26/19 04/27/19 04/28/19 06:59 06:59 06:59 Weight 71.214 kg General appearance: PRESENT: no acute distress, well-developed, well-nourished Head exam: PRESENT: atraumatic, normocephalic Eye exam: PRESENT: conjunctiva pink, EOMI, PERRLA. ABSENT: scleral icterus Ear exam: PRESENT: normal external ear exam Mouth exam: PRESENT: moist, tongue midline Neck exam: ABSENT: carotid bruit, JVD, lymphadenopathy, thyromegaly Respiratory exam: PRESENT: clear to auscultation murphy. ABSENT: rales, rhonchi, wheezes Cardiovascular exam: PRESENT: RRR. ABSENT: diastolic murmur, rubs, systolic murmur Pulses: PRESENT: normal dorsalis pedis pul Vascular exam: PRESENT: normal capillary refill GI/Abdominal exam: PRESENT: normal bowel sounds, soft. ABSENT: distended, guarding, mass, organolmegaly, rebound, tenderness Rectal exam: PRESENT: deferred Extremities exam: PRESENT: full ROM. ABSENT: calf tenderness, clubbing, pedal edema Neurological exam: PRESENT: alert, awake, oriented to person, oriented to place, oriented to time, oriented to situation, CN II-XII grossly intact. ABSENT: motor sensory deficit Psychiatric exam: PRESENT: appropriate affect, normal mood. ABSENT: homicidal ideation, suicidal ideation Skin exam: PRESENT: dry, intact, warm, other - Cellulitis from just proximal to his left index finger and thumb extending just proximal to his wrist. Swelling is noted just proximal to his left thumb. ABSENT: cyanosis, rash Results Laboratory Results: 04/27/19 12:09 04/27/19 12:09 04/27/19 04/27/19 12:09 12:09 WBC 11.8 H RBC 4.93 Hgb 16.3 Hct 48.7 MCV 99 H MCH 33.1 MCHC 33.5 RDW 14.0 Plt Count 265 Seg Neutrophils % 69.5 Sodium 137.2 Potassium 4.3 Chloride 99 Carbon Dioxide 29 Anion Gap 9 BUN 13 Creatinine 0.94 Est GFR ( Amer) > 60 Glucose 68 L Calcium 9.8 Total Bilirubin 1.4 H AST 51 Alkaline Phosphatase 84 Total Protein 7.8 Albumin 4.5 Assessment and Plan - Diagnosis (1) Cat scratch fever Is this a current diagnosis for this admission?: Yes Plan: 04/27/2019-placed on medical surgical floor. Unasyn 3 g IV every 6 hours. Await culture offending organism make change plan of care as appropriate (2) ETOH abuse Is this a current diagnosis for this admission?: Yes Plan: 04/27/2019-patient states been over 2 days since he had a drink. I will place him on Valium 5 mg p.o. 3 times daily just to be on the safe side for any delirium to treatments. (3) Leukocytosis Is this a current diagnosis for this admission?: Yes Plan: 04/27/2019-Unasyn 3 g IV every 6. Await cultures - Time Time Spent with patient: 35 or more minutes - Inpatient Certification Based on my medical assessment, after consideration of the patient's comorbidities, presenting symptoms, or acuity I expect that the services needed warrant INPATIENT care.: Yes I certify that my determination is in accordance with my understanding of Medicare's requirements for reasonable and necessary INPATIENT services [42 CFR 412.3e].: Yes Medical Necessity: Need for IV Antibiotics
[2019-04-27] MEDS: OXYCODONE-ACETAMINOPHEN 5-325 MG TABLET PO PRN ×2 (16:54→22:06)
[2019-04-27] MEDS: DIAZEPAM 5 MG TABLET PO SCH (21:22)
[2019-04-27] MEDS: AMPICILLIN SODIUM/SULBACTAM NA 3 GM in NORMAL SALINE 100 ML IV SCH (21:23)
[2019-04-28] MEDS: AMPICILLIN SODIUM/SULBACTAM NA 3 GM in NORMAL SALINE 100 ML IV SCH ×4 (02:38→21:08)
[2019-04-28] MEDS: DIAZEPAM 5 MG TABLET PO SCH ×3 (05:19→21:08)
[2019-04-28 06:16] LABS: HEMATOCRIT 45.1 % (37.9-51.0); HEMOGLOBIN 15.4 g/dL (13.5-17.0); MEAN CORPUSCULAR HEMOGLOBIN 33.5 pg (27.0-33.4); MEAN CORPUSCULAR HGB CONC 34.1 g/dL (32.0-36.0); MEAN CORPUSCULAR VOLUME 98 fl (80-97); PLATELET COUNT 226 10^3/uL (150-450); RED BLOOD COUNT 4.59 10^6/uL (4.35-5.55); RED CELL DISTRIBUTION WIDTH 13.5 % (11.5-14.0); WHITE BLOOD COUNT 9.9 10^3/uL (4.0-10.5)
--- NOTE | 2019-04-28 08:08 | PDOC PROGRESS REPORT ---
Subjective Progress Note for:: 04/28/19 Subjective:: 2018-no complaints this a.m. Reason For Visit: CAT SCRATCH DISEASE WITH CELLULITIS Physical Exam Vital Signs: Temp Pulse Resp BP Pulse Ox 97.8 F 61 16 130/70 H 97 04/28/19 00:32 04/28/19 00:32 04/27/19 20:25 04/28/19 00:32 04/28/19 00:32 Intake & Output 04/27/19 04/28/19 04/29/19 06:59 06:59 06:59 Intake Total 1170 Output Total 240 Balance 930 Weight 70.1 kg General appearance: PRESENT: no acute distress, well-developed, well-nourished Head exam: PRESENT: atraumatic, normocephalic Eye exam: PRESENT: conjunctiva pink, EOMI, PERRLA. ABSENT: scleral icterus Ear exam: PRESENT: normal external ear exam Mouth exam: PRESENT: moist, tongue midline Neck exam: ABSENT: carotid bruit, JVD, lymphadenopathy, thyromegaly Respiratory exam: PRESENT: clear to auscultation murphy. ABSENT: rales, rhonchi, wheezes Cardiovascular exam: PRESENT: RRR. ABSENT: diastolic murmur, rubs, systolic murmur Pulses: PRESENT: normal dorsalis pedis pul Vascular exam: PRESENT: normal capillary refill GI/Abdominal exam: PRESENT: normal bowel sounds, soft. ABSENT: distended, guarding, mass, organolmegaly, rebound, tenderness Rectal exam: PRESENT: deferred Extremities exam: PRESENT: full ROM. ABSENT: calf tenderness, clubbing, pedal edema Neurological exam: PRESENT: alert, awake, oriented to person, oriented to place, oriented to time, oriented to situation, CN II-XII grossly intact. ABSENT: motor sensory deficit Psychiatric exam: PRESENT: appropriate affect, normal mood. ABSENT: homicidal ideation, suicidal ideation Skin exam: PRESENT: dry, intact, warm, other - Improving cellulitis on the left wrist just proximal to the left thumb and first digit. ABSENT: cyanosis, rash Results Laboratory Results: 04/28/19 05:08 04/27/19 12:09 04/27/19 04/27/19 04/28/19 12:09 12:09 05:08 WBC 11.8 H 9.9 RBC 4.93 4.59 Hgb 16.3 15.4 Hct 48.7 45.1 MCV 99 H 98 H MCH 33.1 33.5 H MCHC 33.5 34.1 RDW 14.0 13.5 Plt Count 265 226 Seg Neutrophils % 69.5 Sodium 137.2 Potassium 4.3 Chloride 99 Carbon Dioxide 29 Anion Gap 9 BUN 13 Creatinine 0.94 Est GFR ( Amer) > 60 Glucose 68 L Calcium 9.8 Phosphorus Magnesium Total Bilirubin 1.4 H AST 51 Alkaline Phosphatase 84 Total Protein 7.8 Albumin 4.5 04/28/19 05:08 WBC RBC Hgb Hct MCV MCH MCHC RDW Plt Count Seg Neutrophils % Sodium Potassium Chloride Carbon Dioxide Anion Gap BUN Creatinine Est GFR ( Amer) Glucose Calcium Phosphorus 4.0 Magnesium 2.1 Total Bilirubin AST Alkaline Phosphatase Total Protein Albumin Assessment and Plan - Diagnosis (1) Cat scratch fever Is this a current diagnosis for this admission?: Yes Plan: 04/27/2019-placed on medical surgical floor. Unasyn 3 g IV every 6 hours. Aw ait culture offending organism make change plan of care as appropriate 04/28/2019-showing improvement this a.m. Continue Unasyn 3 g IV every 6 hours await cultures (2) ETOH abuse Is this a current diagnosis for this admission?: Yes Plan: 04/27/2019-patient states been over 2 days since he had a drink. I will place him on Valium 5 mg p.o. 3 times daily just to be on the safe side for any delirium to treatments. 2018-no issues at this time. Valium was probably not needed in this case but we will continue it just so patient comfort. (3) Leukocytosis Is this a current diagnosis for this admission?: Yes Plan: 04/27/2019-Unasyn 3 g IV every 6. Await cultures 04/28/2019-improved. Continue current therapy - Time Time Spent with patient: 15-24 minutes - Inpatient Certification Based on my medical assessment, after consideration of the patient's comorbidities, presenting symptoms, or acuity I expect that the services needed warrant INPATIENT care.: Yes I certify that my determination is in accordance with my understanding of Medicare's requirements for reasonable and necessary INPATIENT services [42 CFR 412.3e].: Yes Medical Necessity: Need for Pain Control, Need for IV Antibiotics
[2019-04-28] MEDS: OXYCODONE-ACETAMINOPHEN 5-325 MG TABLET PO PRN (09:09)
[2019-04-28] MEDS ORDERED: ASPIRIN 81 MG TABLET, ENT COATED PO SCH (10:00)
[2019-04-28 16:29] LABS: ANION GAP 6 (5-19); BLOOD UREA NITROGEN 17 mg/dL (7-20); CALCIUM 9.5 mg/dL (8.4-10.2); CARBON DIOXIDE 30 mmol/L (22-30); CHLORIDE 100 mmol/L (98-107); GLUCOSE 97 mg/dL (75-110); POTASSIUM 4.8 mmol/L (3.6-5.0)
[2019-04-29] MEDS: AMPICILLIN SODIUM/SULBACTAM NA 3 GM in NORMAL SALINE 100 ML IV SCH ×2 (02:49→08:05)
[2019-04-29 05:13] LABS: HEMATOCRIT 44.4 % (37.9-51.0); HEMOGLOBIN 15.2 g/dL (13.5-17.0); MEAN CORPUSCULAR HGB CONC 34.3 g/dL (32.0-36.0); MEAN CORPUSCULAR VOLUME 99 fl (80-97); PLATELET COUNT 242 10^3/uL (150-450); RED BLOOD COUNT 4.48 10^6/uL (4.35-5.55); RED CELL DISTRIBUTION WIDTH 13.7 % (11.5-14.0); WHITE BLOOD COUNT 8.6 10^3/uL (4.0-10.5)
[2019-04-29] MEDS: DIAZEPAM 5 MG TABLET PO SCH (05:37)
--- NOTE | 2019-04-29 08:13 | PDOC DISCHARGE SUMMARY ---
Impression - Admit/DC Date/PCP Admission Date/Primary Care Provider: 04/27/19 15:58 ALINA BHATIA MD Discharge Date: 04/29/19 - Discharge Diagnosis (1) Cat scratch fever Is this a current diagnosis for this admission?: Yes (2) ETOH abuse Is this a current diagnosis for this admission?: Yes (3) Leukocytosis Is this a current diagnosis for this admission?: Yes - Additional Information Resuscitation Status: Full Code Discharge Diet: As Tolerated Discharge Activity: Activity As Tolerated Referrals: ALINA BHATIA MD [Primary Care Provider] - Follow up as needed Prescriptions: Amox Tr/Potassium Clavulanate [Augmentin 875-125 mg Tablet] 1 tab PO BID #12 tablet Home Medications: Aspirin [Adult Low Dose Aspirin EC] 81 mg PO Q2D 04/27/19 Hydrocodone/Acetaminophen [[place] 10-325 mg Tablet] 0.5 tab PO DAILYP PRN 04/27/19 Multivit-Minerals/FA/Lycopene [One Daily Men's Health Tablet] 1 each PO DAILY 04/27/19 Rabeprazole Sodium [Aciphex] 20 mg PO DAILYP PRN 04/27/19 Amox Tr/Potassium Clavulanate [Augmentin 875-125 mg Tablet] 1 tab PO BID #12 tablet 04/29/19 History of Present Illiness History of Present Illness: HALLEY MCGREGOR is a 68 year old male who was bitten 2 days ago in his left hand by his cat. Patient presented to the ER yesterday was placed on Augmentin and given a tetanus vaccination. Patient presented back to the ER today as he thought the cellulitis was worsening. He does have a small lymph node in his left axillary. He denies any associated symptoms including headache, fever, URI, sore throat. Had no other treatment prior to arrival no true aggravating factors. Hospital Course Hospital Course: Patient presented to the ER with a 2-day history of a cat bite to his left hand. Patient had cellulitis extending from his left wrist just proximal to his thumb and index finger. 2 puncture dudley were noted. Patient was placed on Augmentin the day before and received a tetanus vaccination. Patient presented back to the ER on day of admission with worsening cellulitis. She was admitted placed on ampicillin 3 g IV every 6 hours. At this time patient is improved sufficiently return home. Patient will continue Augmentin for a total of 14 days. Patient will follow-up with primary care practitioner within 1 week. Patient is in agreement plan of care Physical Exam Vital Signs: Temp Pulse Resp BP Pulse Ox 97.7 F 66 18 150/87 H 94 04/29/19 00:00 04/29/19 00:00 04/29/19 00:00 04/29/19 00:00 04/29/19 00:00 Intake & Output 04/28/19 04/29/19 04/30/19 06:59 06:59 06:59 Intake Total 1170 0 Output Total 240 Balance 930 2069 Weight 70.1 kg 69.8 kg General appearance: PRESENT: no acute distress, well-developed, well-nourished Head exam: PRESENT: atraumatic, normocephalic Eye exam: PRESENT: conjunctiva pink, EOMI, PERRLA. ABSENT: scleral icterus Ear exam: PRESENT: normal external ear exam Mouth exam: PRESENT: moist, tongue midline Neck exam: ABSENT: carotid bruit, JVD, lymphadenopathy, thyromegaly Respiratory exam: PRESENT: clear to auscultation murphy. ABSENT: rales, rhonchi, wheezes Cardiovascular exam: PRESENT: RRR. ABSENT: diastolic murmur, rubs, systolic murmur Pulses: PRESENT: normal dorsalis pedis pul Vascular exam: PRESENT: normal capillary refill GI/Abdominal exam: PRESENT: normal bowel sounds, soft. ABSENT: distended, guard ing, mass, organolmegaly, rebound, tenderness Rectal exam: PRESENT: deferred Extremities exam: PRESENT: full ROM. ABSENT: calf tenderness, clubbing, pedal edema Neurological exam: PRESENT: alert, awake, oriented to person, oriented to place, oriented to time, oriented to situation, CN II-XII grossly intact. ABSENT: motor sensory deficit Psychiatric exam: PRESENT: appropriate affect, normal mood. ABSENT: homicidal ideation, suicidal ideation Skin exam: PRESENT: dry, intact, warm, other - Improving cellulitis left wrist. ABSENT: cyanosis, rash Results Laboratory Results: WBC 8.6 10^3/uL (4.0-10.5) 04/29/19 04:10 RBC 4.48 10^6/uL (4.35-5.55) 04/29/19 04:10 Hgb 15.2 g/dL (13.5-17.0) 04/29/19 04:10 Hct 44.4 % (37.9-51.0) 04/29/19 04:10 MCV 99 fl (80-97) H 04/29/19 04:10 MCH 34.0 pg (27.0-33.4) H 04/29/19 04:10 MCHC 34.3 g/dL (32.0-36.0) 04/29/19 04:10 RDW 13.7 % (11.5-14.0) 04/29/19 04:10 Plt Count 242 10^3/uL (150-450) 04/29/19 04:10 Lymph % (Auto) 17.4 % (13-45) 04/27/19 12:09 Delta % (Auto) 10.7 % (3-13) 04/27/19 12:09 Eos % (Auto) 1.8 % (0-6) 04/27/19 12:09 Baso % (Auto) 0.6 % (0-2) 04/27/19 12:09 Absolute Neuts (auto) 8.2 10^3/uL (1.7-8.2) 04/27/19 12:09 Absolute Lymphs (auto) 2.0 10^3/uL (0.5-4.7) 04/27/19 12:09 Absolute Monos (auto) 1.3 10^3/uL (0.1-1.4) 04/27/19 12:09 Absolute Eos (auto) 0.2 10^3/uL (0.0-0.6) 04/27/19 12:09 Absolute Basos (auto) 0.1 10^3/uL (0.0-0.2) 04/27/19 12:09 Seg Neutrophils % 69.5 % (42-78) 04/27/19 12:09 Sodium 136.3 mmol/L (137-145) L 04/28/19 15:28 Potassium 4.8 mmol/L (3.6-5.0) 04/28/19 15:28 Chloride 100 mmol/L (98-107) 04/28/19 15:28 Carbon Dioxide 30 mmol/L (22-30) 04/28/19 15:28 Anion Gap 6 (5-19) 04/28/19 15:28 BUN 17 mg/dL (7-20) 04/28/19 15:28 Creatinine 1.01 mg/dL (0.52-1.25) 04/28/19 15:28 Est GFR ( Amer) > 60 (>60) 04/28/19 15:28 Est GFR (MDRD) Non-Af > 60 (>60) 04/28/19 15:28 Glucose 97 mg/dL (75-110) 04/28/19 15:28 Calcium 9.5 mg/dL (8.4-10.2) 04/28/19 15:28 Phosphorus 4.0 mg/dL (2.5-4.5) 04/28/19 05:08 Magnesium 2.1 mg/dL (1.6-2.3) 04/28/19 05:08 Total Bilirubin 1.4 mg/dL (0.2-1.3) H 04/27/19 12:09 Direct Bilirubin 0.1 mg/dL (0.0-0.4) 04/27/19 12:09 Neonat Total Bilirubin Not Reportable 04/27/19 12:09 Neonat Direct Bilirubin Not Reportable 04/27/19 12:09 Neonat Indirect Bili Not Reportable 04/27/19 12:09 AST 51 U/L (17-59) 04/27/19 12:09 ALT 95 U/L (<50) 04/27/19 12:09 Alkaline Phosphatase 84 U/L (38-126) 04/27/19 12:09 Total Protein 7.8 g/dL (6.3-8.2) 04/27/19 12:09 Albumin 4.5 g/dL (3.5-5.0) 04/27/19 12:09 Plan Time Spent: Greater than 30 Minutes Stroke Is this a Stroke Patient?: No Acute Heart Failure - Is this a Heart Failure Patient?: No
[2019-04-29 10:20] VITALS: BP 152/85
== END 2019-04-29 10:44 | disposition home or self-care (01) | DRG 815 ==
LOC: ER 11:34 → EH 15:58 → 4N 17:51
PROVIDERS: ADMIT Hospitalist; ATTEND Hospitalist
DX: A28.1 Cat-scratch disease (principal); L03.114 Cellulitis of left upper limb; F10.10 Alcohol abuse, uncomplicated; D72.829 Elevated white blood cell count, unspecified; L04.2 Acute lymphadenitis of upper limb; I25.10 Atherosclerotic heart disease of native coronary artery without angina pectoris; E78.5 Hyperlipidemia, unspecified; F17.210 Nicotine dependence, cigarettes, uncomplicated; Z60.2 Problems related to living alone; Z95.5 Presence of coronary angioplasty implant and graft; I25.2 Old myocardial infarction; Z79.899 Other long term (current) drug therapy; Z82.49 Family history of ischemic heart disease and other diseases of the circulatory system; W55.01XA Bitten by cat, initial encounter; Y93.9 Activity, unspecified
CPT/HCPCS: 36415; 80048; 80053; 83735; 84100; 85025; 85027; 87040; 96374; 99284; J0295; J3490; J7050

== ENCOUNTER → 2019-09-14 | Outpatient (CLI) | payer MEDICARE, BC ==
[2019-09-14 07:58] LABS: ABSOLUTE EOSINOPHILS # (AUTO) 0.2 10^3/uL (0.0-0.6); ABSOLUTE LYMPHOCYTES (AUTO) 1.8 10^3/uL (0.5-4.7); ABSOLUTE MONOCYTES (AUTO) 0.6 10^3/uL (0.1-1.4); ABSOLUTE NEUT (AUTO) 4.9 10^3/uL (1.7-8.2); BASOPHILS % (AUTO) 0.6 % (0-2); EOSINOPHILS % (AUTO) 2.1 % (0-6); HEMATOCRIT 48.6 % (37.9-51.0); HEMOGLOBIN 16.7 g/dL (13.5-17.0); LYMPHOCYTES % (AUTO) 23.8 % (13-45); MEAN CORPUSCULAR HGB CONC 34.4 g/dL (32.0-36.0); MEAN CORPUSCULAR VOLUME 99 fl (80-97); MONOCYTES % (AUTO) 8.4 % (3-13); PLATELET COUNT 284 10^3/uL (150-450); RED BLOOD COUNT 4.92 10^6/uL (4.35-5.55); RED CELL DISTRIBUTION WIDTH 13.2 % (11.5-14.0); SEGMENTED NEUTROPHILS % (AUTO) 65.1 % (42-78); TOTAL CELLS COUNTED % (AUTO) 100 %; WHITE BLOOD COUNT 7.5 10^3/uL (4.0-10.5)
[2019-09-14 08:22] LABS: ALBUMIN 4.4 g/dL (3.5-5.0); ALKALINE PHOSPHATASE 85 U/L (38-126); ANION GAP 7 (5-19); ASPARTATE AMINO TRANSFERASE 83 U/L (17-59); BILIRUBIN,TOTAL 0.7 mg/dL (0.2-1.3); BLOOD UREA NITROGEN 14 mg/dL (7-20); CALCIUM 9.7 mg/dL (8.4-10.2); CARBON DIOXIDE 30 mmol/L (22-30); CHLORIDE 100 mmol/L (98-107); CHOLESTEROL 185.03 mg/dL (0-200); GLUCOSE 122 mg/dL (75-110); POTASSIUM 4.9 mmol/L (3.6-5.0); TOTAL PROTEIN 7.6 g/dL (6.3-8.2); TRIGLYCERIDES 79 mg/dL (<150)
[2019-09-14 08:33] LABS: DIRECT LDL 129 mg/dL (<100)
== END ==
LOC: OD 07:10
PROVIDERS: ATTEND Family Medicine
DX: I25.9 Chronic ischemic heart disease, unspecified (principal); Z13.1 Encounter for screening for diabetes mellitus; Z79.899 Other long term (current) drug therapy; R73.01 Impaired fasting glucose; Z79.891 Long term (current) use of opiate analgesic
CPT/HCPCS: 36415; 85025; 80053; 83036; 80061; G0480; 80361

== ENCOUNTER 2019-11-18 10:02 | Emergency (ER) | payer MEDICARE, BC ==
--- NOTE | 2019-11-18 10:33 | ER Document Report ---
HPI - HPI Patient complains to provider of: Right eye trauma Time Seen by Provider: 11/18/19 10:21 Onset: Other - Quality of pain: No pain Pain Level: Denies Context: 69-year-old male with history of asthma presents emergency department with complaints of right eye trauma. Reports on night it was windy. He went out onto his deck to secure the deck furniture when he slipped and hit his right eye by a table. Patient reports no change in LOC. Reports he did not hit his head, just his eye. He has an fine abrasion to his right eyebrow,upper eyelid and subconjunctival feel hemorrhage. Patient is not taking anticoagulants. Patient reports his vision is fine. He drove here. Denies fever vomiting diarrhea. Reports his made him come. Associated Symptoms: None Exacerbated by: Denies Relieved by: Denies Similar symptoms previously: No Recently seen / treated by doctor: No - REPRODUCTIVE Reproductive: DENIES: : Past Medical History - General Information source: Patient - Social History Smoking Status: Current Every Day Smoker Frequency of alcohol use: Occasional Drug Abuse: None Lives with: Family Family History: Hypertension Patient has suicidal ideation: No Patient has homicidal ideation: No - Past Medical History Cardiac Medical History: Reports: Hx Coronary Artery Disease - Stent 2001, Hx Heart Attack - 2001, Hx Hypercholesterolemia Denies: Hx Hypertension Pulmonary Medical History: Reports: Hx Asthma - CHILDHOOD, Hx COPD Denies: Hx Bronchitis, Hx Pneumonia Neurological Medical History: Denies: Hx Cerebrovascular Accident, Hx Seizures Renal/ Medical History: Denies: Hx Peritoneal Dialysis Musculoskeletal Medical History: Reports Hx Arthritis - Rheumatoid in back, pelvis, hips Past Surgical History: Reports: Hx Appendectomy, Hx Cardiac Catheterization - 1X stent, Hx Tonsillectomy - Immunizations Hx Diphtheria, Pertussis, Tetanus Vaccination: Yes Hx Pneumococcal Vaccination: 03/29/18 Vertical Provider Document - CONSTITUTIONAL Agree With Documented VS: Yes Exam Limitations: No Limitations General Appearance: WD/WN, No Apparent Distress - INFECTION CONTROL TRAVEL OUTSIDE OF THE [place] IN LAST 30 DAYS: No - HEENT HEENT: Atraumatic, Conjuctival Injection - right subconjunctival hemorrhage, ecchymosis with swelling no erythema no warmth normal EOC, Normocephalic, PERRLA - NECK Neck: Normal Inspection, Supple. negative: Lymphadenopathy-Left, Lymphadenopathy-Right - RESPIRATORY Respiratory: Breath Sounds Normal, No Respiratory Distress - CARDIOVASCULAR Cardiovascular: Regular Rate, Regular Rhythm - GI/ABDOMEN Gastrointestinal: Abdomen Soft, Abdomen Non-Tender - MUSCULOSKELETAL/EXTREMETIES Musculoskeletal/Extremeties: MAEW, FROM, Non-Tender - NEURO Level of Consciousness: Awake, Alert, Appropriate Motor/Sensory: No Motor Deficit - DERM Integumentary: Warm, Dry, Laceration - well approximated superficial laceration ~2 cm vertically in right eyebrow, no bleeding, 1 cm laceration well approximated, superficial to right upper outer eyelid, no active bleeding, periortibital ecchymosis Course - Re-evaluation Re-evalutation: 11/18/19 11:31 69-year-old male presents emergency department after he slipped while putting away deck furniture last night and hit his eye on the table breaking his glasses. He denies change in LOC. Is not on anticoagulants. Patient has well approximated laceration to his right eyebrow and right upper eyelid. CT results negative for acute injury. Patient was instructed on results. Instructed to monitor his eye return for worsening symptoms swelling increasing pain concerns. He verbalized understanding to all instructions. Facial Bones CT 11/18/19 10:28 IMPRESSION: Right periorbital edema. No underlying fracture. Head CT 11/18/19 10:28 IMPRESSION: Mild right periorbital edema. No underlying fracture. No acute intracranial event. EVIDENCE OF ACUTE STROKE: NO. - Vital Signs Vital signs: Temp Pulse Resp BP Pulse Ox 98.6 F 78 18 173/99 H 95 11/18/19 10:21 11/18/19 10:12 11/18/19 10:12 11/18/19 10:12 11/18/19 10:12 - Diagnostic Test Radiology reviewed: Image reviewed, Reports reviewed Discharge - Discharge Clinical Impression: Subconjunctival hemorrhage Qualifiers: Laterality: right Qualified Code(s): H11.31 - Conjunctival hemorrhage, right eye Facial abrasion Qualifiers: Encounter type: initial encounter Qualified Code(s): S00.81XA - Abrasion of other part of head, initial encounter Head injury Qualifiers: Encounter type: initial encounter Qualified Code(s): S09.90XA - Unspecified injury of head, initial encounter Condition: Stable Disposition: HOME, SELF-CARE Instructions: Head Injury Precautions ([facility]), Subconjunctival Hemorrhage ([facility]) Additional Instructions: *You have been evaluated for an injury, right eye subconjunctival hemorrhage, facial abrasion *Monitor the abrasions for any signs of infection such as increased pain, redness, swelling, warmth *Take Tylenol or ibuprofen as indicated for pain *Follow-up with your primary care provider within 1 week for recheck *Return to the emergency department for any signs of confusion, increased swelling around your eye, worsening symptoms, concerns Monitor your blood pressure. Your blood pressure was elevated today. This may be because you were anxious, in pain or because you need medication. It is important to follow up with your primary care provider for full evaluation. Forms: Elevated Blood Pressure Referrals: ALINA BHATIA MD [Primary Care Provider] - Follow up in 3-5 days
--- NOTE | 2019-11-18 11:11 | RADIOLOGY REPORT (SQ) ---
EXAM DESCRIPTION: CT HEAD WITHOUT IMAGES COMPLETED DATE/TIME: 11/18/2019 11:00 am REASON FOR STUDY: fall, hit right eye, ecchymosis COMPARISON: None. TECHNIQUE: Axial images acquired through the brain without intravenous contrast. Images reviewed wi th bone, brain and subdural windows. Additional sagittal and coronal reconstructions were generated. Images stored on PACS. All CT scanners at this facility use dose modulation, iterative reconstruction, and/or weight based d osing when appropriate to reduce radiation dose to as low as reasonably achievable (ALARA). [facility]: Dose Right [facility]: CareDose [facility]: Dose Right [facility]: Teradose 4D [facility]: [employer] RADIATION DOSE: CT Rad equipment meets quality standard of care and radiation dose reduction techniq ues were employed. CTDIvol: 53.2 mGy. DLP: 1044 mGy-cm. mGy. LIMITATIONS: None. FINDINGS: VENTRICLES: Normal size and contour. CEREBRUM: No masses. No hemorrhage. No midline shift. No evidence for acute infarction. Normal gra y/white matter differentiation. No areas of low density in the white matter. CEREBELLUM: No masses. No hemorrhage. No alteration of density. No evidence for acute infarction. EXTRAAXIAL SPACES: No fluid collections. No masses. ORBITS AND GLOBE: No intra- or extraconal masses. Normal contour of globe without masses. CALVARIUM: No fracture. PARANASAL SINUSES: No fluid or mucosal thickening. SOFT TISSUES: Mild right periorbital edema. OTHER: No other significant finding. IMPRESSION: Mild right periorbital edema. No underlying fracture. No acute intracranial event. EVIDENCE OF ACUTE STROKE: NO. COMMENT: Quality ID # [id number]: Final reports with documentation of one or more dose reduction techniques (e.g., Automated exposure control, adjustment of the mA and/or kV according to patient size, use of iterative reconstruction technique) TECHNICAL DOCUMENTATION: JOB ID: [id number] 2010 [employer]- All Rights Reserved Reading location - IP/workstation name: [email or web address]
--- NOTE | 2019-11-18 11:16 | RADIOLOGY REPORT (SQ) ---
EXAM DESCRIPTION: CT FACIAL AREA WITHOUT IMAGES COMPLETED DATE/TIME: 11/18/2019 11:00 am REASON FOR STUDY: fall, hit right eye, ecchymosis COMPARISON: None. TECHNIQUE: Noncontrasted images through the facial bones and orbits windowed for bone and soft tissu e. Additional coronal and sagittal reconstructed images reviewed. All images stored on PACS. All CT scanners at this facility use dose modulation, iterative reconstruction, and/or weight based d osing when appropriate to reduce radiation dose to as low as reasonably achievable (ALARA). [facility]: Dose Right [facility]: CareDose [facility]: Dose Right [facility]: Teradose 4D [facility]: [employer] RADIATION DOSE: CT Rad equipment meets quality standard of care and radiation dose reduction techniq ues were employed. CTDIvol: 30.4 mGy. DLP: 608 mGy-cm. mGy. LIMITATIONS: None. FINDINGS: FACIAL BONES: No fracture or bone lesion. ORBITS: Right periorbital edema. No fracture. PARANASAL SINUSES: Slight mucosal thickening in the right maxillary sinus. No nasal polyps. Maxillar y sinus outlets are patent. SOFT TISSUES: No mass or edema. INFERIOR BRAIN: Limited view. No acute findings. OTHER: No other significant finding. IMPRESSION: Right periorbital edema. No underlying fracture. TECHNICAL DOCUMENTATION: JOB ID: [id number] Quality ID # [id number]: Final reports with documentation of one or more dose reduction techniques (e.g., Au tomated exposure control, adjustment of the mA and/or kV according to patient size, use of iterative reconstruction technique) 2010 [employer]- All Rights Reserved Reading location - IP/workstation name: [email or web address]
[2019-11-18 11:44] VITALS: BP 178/97
== END 2019-11-18 11:42 | disposition home or self-care (01) ==
LOC: ER 10:02
DX: S00.211A Abrasion of right eyelid and periocular area, initial encounter (principal); H11.31 Conjunctival hemorrhage, right eye; S00.81XA Abrasion of other part of head, initial encounter; S09.90XA Unspecified injury of head, initial encounter; W01.190A Fall on same level from slipping, tripping and stumbling with subsequent striking against furniture, initial encounter; Y92.008 Other place in unspecified non-institutional (private) residence as the place of occurrence of the external cause; F17.200 Nicotine dependence, unspecified, uncomplicated; I25.10 Atherosclerotic heart disease of native coronary artery without angina pectoris; J44.9 Chronic obstructive pulmonary disease, unspecified
CPT/HCPCS: 70450; 70486; 99283

== ENCOUNTER → 2020-03-09 | Outpatient (CLI) | payer MEDICARE, BC ==
[2020-03-09 08:35] LABS: ABSOLUTE EOSINOPHILS # (AUTO) 0.2 10^3/uL (0.0-0.6); ABSOLUTE LYMPHOCYTES (AUTO) 2.1 10^3/uL (0.5-4.7); ABSOLUTE MONOCYTES (AUTO) 0.8 10^3/uL (0.1-1.4); BASOPHILS % (AUTO) 0.5 % (0-2); EOSINOPHILS % (AUTO) 2.3 % (0-6); HEMATOCRIT 48.8 % (37.9-51.0); LYMPHOCYTES % (AUTO) 25.7 % (13-45); MEAN CORPUSCULAR HEMOGLOBIN 34.1 pg (27.0-33.4); MEAN CORPUSCULAR HGB CONC 34.7 g/dL (32.0-36.0); MEAN CORPUSCULAR VOLUME 98 fl (80-97); MONOCYTES % (AUTO) 9.8 % (3-13); PLATELET COUNT 253 10^3/uL (150-450); RED BLOOD COUNT 4.97 10^6/uL (4.35-5.55); RED CELL DISTRIBUTION WIDTH 13.4 % (11.5-14.0); SEGMENTED NEUTROPHILS % (AUTO) 61.7 % (42-78); TOTAL CELLS COUNTED % (AUTO) 100 %; WHITE BLOOD COUNT 8.2 10^3/uL (4.0-10.5)
[2020-03-09 09:00] LABS: ALBUMIN 4.7 g/dL (3.5-5.0); ALKALINE PHOSPHATASE 84 U/L (38-126); ANION GAP 6 (5-19); ASPARTATE AMINO TRANSFERASE 98 U/L (17-59); BILIRUBIN,DIRECT 0.3 mg/dL (0.0-0.4); BLOOD UREA NITROGEN 14 mg/dL (7-20); CALCIUM 9.9 mg/dL (8.4-10.2); CARBON DIOXIDE 31 mmol/L (22-30); CHLORIDE 101 mmol/L (98-107); CHOLESTEROL 222.09 mg/dL (0-200); GLUCOSE 129 mg/dL (75-110); POTASSIUM 4.8 mmol/L (3.6-5.0); TOTAL PROTEIN 7.8 g/dL (6.3-8.2); TRIGLYCERIDES 80 mg/dL (<150)
[2020-03-09 09:11] LABS: DIRECT LDL 148 mg/dL (<100)
[2020-03-09 10:51] LABS: FOLATE 8.37 ng/mL (>2.76)
== END ==
LOC: OD 07:37
PROVIDERS: ATTEND Family Medicine
DX: E78.5 Hyperlipidemia, unspecified (principal); R71.8 Other abnormality of red blood cells; R73.01 Impaired fasting glucose
CPT/HCPCS: 36415; 80053; 80061; 82607; 82746; 83036; 85025

== ENCOUNTER 2020-07-09 11:47 | Observation (INO) | payer MEDICARE, BC ==
[2020-07-09] MEDS ORDERED: ASPIRIN 81 MG TABLET, CHEWABLE PO ONE (12:57)
--- NOTE | 2020-07-09 12:57 | ER Document Report ---
ED Medical Screen (RME) - General Chief Complaint: Chest Pain > 30 Stated Complaint: CHEST PAIN Time Seen by Provider: 07/09/20 12:51 Primary Care Provider: ALINA BHATIA MD [Primary Care Provider] - Follow up as needed Notes: HPI: 69-year-old male with history of prior AL in 1999 that resulted in a stent and angioplasty as well as bladder cancer currently under treatment with local chemotherapy every few months at [facility] presenting with episode of chest heaviness and pressure. Patient had an episode last week that lasted approximately 5 minutes with a central heaviness in the chest with shortness of breath. Patient had another episode last night that occurred while he was in bed again lasting several minutes with shortness of breath and radiation into the left shoulder left arm. He still has a pressure sensation in the chest currently. States this feels like his prior heart attack. PHYSICAL EXAMINATION: Lung sounds are clear to auscultation regular rate and rhythm EKG normal sinus rhythm without ectopy I have greeted and performed a rapid initial assessment of this patient. A comprehensive ED assessment and evaluation of the patient, analysis of test results and completion of medical decision making process will be conducted by an additional ED providers. Please note that clinical decision making for this patient was made during the 2019 pandemic of novel coronavirus which caused a significant strain on the healthcare system including at this particular facility. Criteria for admission discharge and level of care decisions as well as treatment decisions have necessarily changed TRAVEL OUTSIDE OF THE [place] IN LAST 30 DAYS: No - Related Data Allergies/Adverse Reactions: No Known Allergies Allergy (Verified 04/27/19 11:44) Home Medications: asa, aciphex, hydrocodone Past Medical History - Social History Chew tobacco use (# tins/day): No Frequency of alcohol use: Social Drug Abuse: None - Past Medical History Cardiac Medical History: Reports: Hx Coronary Artery Disease - Stent 2001, Hx Heart Attack - 2001, Hx Hypercholesterolemia Denies: Hx Hypertension Pulmonary Medical History: Reports: Hx Asthma - CHILDHOOD, Hx COPD Denies: Hx Bronchitis, Hx Pneumonia Neurological Medical History: Denies: Hx Cerebrovascular Accident, Hx Seizures Renal/ Medical History: Denies: Hx Peritoneal Dialysis Musculoskeltal Medical History: Reports Hx Arthritis - Rheumatoid in back, pelvis, hips Past Surgical History: Reports: Hx Appendectomy, Hx Cardiac Catheterization - 1X stent, Hx Tonsillectomy - Immunizations Hx Diphtheria, Pertussis, Tetanus Vaccination: Yes Physical Exam - Vital signs Vitals: Temp Pulse Resp BP Pulse Ox 98.1 F 80 16 150/89 H 95 07/09/20 12:26 07/09/20 12:07/09/20 12:07/09/20 12:07/09/20 12:26 Course - Vital Signs Vital signs: Temp Pulse Resp BP Pulse Ox 98.1 F 80 16 150/89 H 95 07/09/20 12:26 07/09/20 12:07/09/20 12:07/09/20 12:07/09/20 12:26 Doctor's Discharge - Discharge Referrals: ALINA BHATIA MD [Primary Care Provider] - Follow up as needed
--- NOTE | 2020-07-09 13:54 | RADIOLOGY REPORT (SQ) ---
EXAM DESCRIPTION: CHEST SINGLE VIEW IMAGES COMPLETED DATE/TIME: 07/09/2020 1:26 pm REASON FOR STUDY: chest pain COMPARISON: PA and lateral views of the chest from 11/01/2015. EXAM PARAMETERS: NUMBER OF VIEWS: One view. TECHNIQUE: An AP view of the chest was obtained. RADIATION DOSE: NA LIMITATIONS: None. FINDINGS: LUNGS AND PLEURA: No consolidation, pleural effusion or pneumothorax. MEDIASTINUM AND HILAR STRUCTURES: No mediastinal or hilar contour abnormality. HEART AND VASCULAR STRUCTURES: The cardiac silhouette and pulmonary vasculature are within normal shel[place] its. BONES: No acute findings. HARDWARE: None in the chest. OTHER: No other finding. IMPRESSION: No acute cardiopulmonary process. TECHNICAL DOCUMENTATION: JOB ID: [id number] 2010 [email or web address]- All Rights Reserved Reading location - IP/workstation name: [email or web address]
[2020-07-09 13:59] LABS: ABSOLUTE BASOPHILS # (AUTO) 0.1 10^3/uL (0.0-0.2); ABSOLUTE EOSINOPHILS # (AUTO) 0.2 10^3/uL (0.0-0.6); ABSOLUTE LYMPHOCYTES (AUTO) 2.4 10^3/uL (0.5-4.7); ABSOLUTE MONOCYTES (AUTO) 0.7 10^3/uL (0.1-1.4); BASOPHILS % (AUTO) 1.2 % (0-2); EOSINOPHILS % (AUTO) 2.6 % (0-6); HEMATOCRIT 48.5 % (37.9-51.0); HEMOGLOBIN 16.6 g/dL (13.5-17.0); LYMPHOCYTES % (AUTO) 25.3 % (13-45); MEAN CORPUSCULAR HEMOGLOBIN 33.5 pg (27.0-33.4); MEAN CORPUSCULAR HGB CONC 34.3 g/dL (32.0-36.0); MEAN CORPUSCULAR VOLUME 98 fl (80-97); MONOCYTES % (AUTO) 7.8 % (3-13); PLATELET COUNT 264 10^3/uL (150-450); RED BLOOD COUNT 4.97 10^6/uL (4.35-5.55); RED CELL DISTRIBUTION WIDTH 13.6 % (11.5-14.0); SEGMENTED NEUTROPHILS % (AUTO) 63.1 % (42-78); TOTAL CELLS COUNTED % (AUTO) 100 %; WHITE BLOOD COUNT 9.5 10^3/uL (4.0-10.5)
[2020-07-09 14:21] LABS: ALBUMIN 4.4 g/dL (3.5-5.0); ALKALINE PHOSPHATASE 81 U/L (38-126); ANION GAP 6 (5-19); ASPARTATE AMINO TRANSFERASE 104 U/L (17-59); BILIRUBIN,DIRECT 0.2 mg/dL (0.0-0.4); BILIRUBIN,TOTAL 0.8 mg/dL (0.2-1.3); BLOOD UREA NITROGEN 12 mg/dL (7-20); CALCIUM 9.7 mg/dL (8.4-10.2); CARBON DIOXIDE 31 mmol/L (22-30); CHLORIDE 101 mmol/L (98-107); GLUCOSE 86 mg/dL (75-110); POTASSIUM 4.6 mmol/L (3.6-5.0); TOTAL PROTEIN 7.5 g/dL (6.3-8.2)
[2020-07-09 14:47] LABS: APPEARANCE,URINE CLEAR; BILIRUBIN,URINE NEGATIVE (NEGATIVE); COLOR,URINE YELLOW; GLUCOSE, URINE NEGATIVE (NEGATIVE); KETONES,URINE NEGATIVE (NEGATIVE); LEUKOCYTE ESTERASE,URINE NEGATIVE (NEGATIVE); NITRITE,URINE NEGATIVE (NEGATIVE); PROTEIN,URINE NEGATIVE (NEGATIVE); UROBILINOGEN,URINE NEGATIVE mg/dL (<2.0)
--- NOTE | 2020-07-09 16:52 | ER Document Report ---
ED Cardiac - General Chief Complaint: Chest Pain > 30 Stated Complaint: CHEST PAIN Time Seen by Provider: 07/09/20 12:51 Primary Care Provider: ALINA BAHTIA MD [Primary Care Provider] - Follow up as needed Mode of Arrival: Ambulatory Information source: Patient TRAVEL OUTSIDE OF THE [place] IN LAST 30 DAYS: No - HPI Notes: Patient presents complaint of chest pain. He states that he is a smoker. He has a history of angioplasty and stent placement approximately 20 years ago. He states he has no engineer geophysical laboratory in the area currently. He states his stents were placed in [place]. He states last time he had any type of evaluation was proximally 7 years ago when he had a negative nuclear stress test. He states over the last 3 weeks he has had 2 episodes of substernal tight squeezing chest pain. He states 1 episode occurred last night and caused him to wake up from sleep. He states he went and walk around the house and drank a Gatorade and the pain seemed to subside. Today when he was taking trash cans back from the curb he had another episode of severe substernal chest pain. And he came to the hospital. He has had some mild shortness of breath with it. He does not report any nausea. No known swelling. No trauma. He is currently pain-free. He states he does take an aspirin a day. He states he is also had an ablation in the past. - Related Data Allergies/Adverse Reactions: No Known Allergies Allergy (Verified 07/09/20 14:19) Home Medications: asa, aciphex, hydrocodone Past Medical History - General Information source: Patient - Social History Smoking Status: Current Every Day Smoker Chew tobacco use (# tins/day): No Frequency of alcohol use: Social Drug Abuse: None Family History: Hypertension Patient has homicidal ideation: No - Past Medical History Cardiac Medical History: Reports: Hx Coronary Artery Disease - Stent 2001, Hx Heart Attack - 2001, Hx Hypercholesterolemia Denies: Hx Hypertension Pulmonary Medical History: Reports: Hx Asthma - CHILDHOOD, Hx COPD Denies: Hx Bronchitis, Hx Pneumonia Neurological Medical History: Denies: Hx Cerebrovascular Accident, Hx Seizures Renal/ Medical History: Denies: Hx Peritoneal Dialysis Musculoskeletal Medical History: Reports Hx Arthritis - Rheumatoid in back, pelvis, hips Past Surgical History: Reports: Hx Appendectomy, Hx Cardiac Catheterization - 1X stent, Hx Tonsillectomy - Immunizations Hx Diphtheria, Pertussis, Tetanus Vaccination: Yes Hx Pneumococcal Vaccination: 03/29/18 Review of Systems - Review of Systems Constitutional: denies: Chills, Fever Cardiovascular: Chest pain. denies: Palpitations Respiratory: Short of breath. denies: Cough -: Yes All other systems reviewed and negative Physical Exam - Vital signs Vitals: Temp Pulse Resp BP Pulse Ox 98.1 F 80 16 150/89 H 95 07/09/20 12:26 07/09/20 12:26 07/09/20 12:26 07/09/20 12:26 07/09/20 12:26 Interpretation: Hypertensive - General General appearance: Appears well, Alert - HEENT Head: Normocephalic, Atraumatic Eyes: Normal Pupils: PERRL - Respiratory Respiratory status: No respiratory distress Chest status: Nontender Breath sounds: Normal Chest palpation: Normal - Cardiovascular Rhythm: Regular Heart sounds: Normal auscultation Murmur: No - Abdominal Inspection: Normal Distension: No distension Bowel sounds: Normal Tenderness: Nontender Organomegaly: No organomegaly - Back Back: Normal, Nontender - Extremities General upper extremity: Normal inspection, Nontender, Normal color, Normal ROM, Normal temperature General lower extremity: Normal inspection, Nontender, Normal color, Normal ROM, Normal temperature, Normal weight bearing. No: Kieran's sign - Neurological Neuro grossly intact: Yes Cognition: Normal Orientation: AAOx4 Marianela Coma Scale Eye Opening: Spontaneous Marianela Coma Scale Verbal: Oriented Dutton Coma Scale Motor: Obeys Commands Dutton Coma Scale Total: 15 Speech: Normal Motor strength normal: LUE, RUE, LLE, RLE Sensory: Normal - Psychological Associated symptoms: Normal affect, Normal mood - Skin Skin Temperature: Warm Skin Moisture: Dry Skin Color: Normal Course - Re-evaluation Re-evalutation: 07/09/20 16:50 Patient presents with substernal chest pain. Is been intermittent. Today it was exertional. He does have significant risk factors including previous myocardial infarction with stent placement and angioplasty. He also is still a current smoker and hypertensive. EKG shows no acute ischemic changes. I did call and discussed the case with the [facility] laboratory on-call, Dr. Valdez. He recommends admission. - Vital Signs Vital signs: Temp Pulse Resp BP Pulse Ox 98.3 F 80 24 H 155/94 H 94 07/09/20 14:15 07/09/20 12:26 07/09/20 16:01 07/09/20 16:01 07/09/20 16:01 - Laboratory Results Result Diagrams: 07/09/20 13:46 07/09/20 13:46 Laboratory Results Interpreted: 07/09/20 07/09/20 07/09/20 13:46 13:46 14:12 MCV 98 H MCH 33.5 H Carbon Dioxide 31 H AST 104 H ALT 169 H Urine Blood SMALL H Critical Laboratory Results Reviewed: No Critical Results - Radiology Results Critical Radiology Results Reviewed: No Critical Results - EKG Interpretation by Ks EKG shows normal: Sinus rhythm Rate: Normal - 81 Rhythm: NSR Laurel/QRS: No: Right axis deviation, Left axis deviation Discharge - Discharge Clinical Impression: Chest pain Qualifiers: Chest pain type: unspecified Qualified Code(s): R07.9 - Chest pain, unspecified Condition: Serious Disposition: ADMITTED OBSERVATION Admitting Provider: Tabby (Hospitalist) - annia to admit Unit Admitted: Telemetry Referrals: ALINA BHATIA MD [Primary Care Provider] - Follow up as needed
[2020-07-09] MEDS ORDERED: ACETAMINOPHEN 325 MG TABLET PO PRN (17:10)
--- NOTE | 2020-07-09 17:59 | EKG REPORT ---
SEVERITY:- BORDERLINE ECG - SINUS RHYTHM BORDERLINE T ABNORMALITIES, INFERIOR LEADS : Confirmed by: Neli Mendez MD 09-Jul-2020 17:59:09
--- NOTE | 2020-07-09 20:14 | PDOC H&P ---
History of Present Illness Admission Date/PCP: 07/09/20 16:58 ALINA BHATIA MD Patient complains of: Chest pain History of Present Illness: HALLEY MCGREGOR is a 69 year old male with PMH CT (2000 with angioplasty and stent placement) who presented to the ED today with reports of 3 separate episodes of chest pain in the past 2 weeks which he describes as substernal, tight, crushing chest pain that radiates down into his left arm lasting no more than 5 minutes in duration. Reports associated SOB. Resolves without intervention. 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 At current has some occasional pain left chest wall and left axilla region. Described as a quick tinge, lasting seconds in duration. Denies associated dizziness, fatigue, lightheadness, diaphoresis, nausea, or vomiting. He is not followed by a director summer sessions. Last stress test was ~6 years ago for surgical clearance. Evaluation in the ED patient found to have EKG without ST changes and negative troponin x2. Cardiology was consulted by ED and recommended patient admit for further evaluation and treatment. Past Medical History Cardiac Medical History: Reports: Coronary Artery Disease - Stent 2001, Myocardial Infarction - 2001, Hyperlipidema Denies: Congestive Heart Failure, DVT, Hypertension, Pulmonary Embolism Pulmonary Medical History: Reports: Asthma - CHILDHOOD, Bronchitis Denies: Pneumonia Neurological Medical History: Denies: Hemorrhagic CVA, Ischemic CVA, Seizures Endocrine Medical History: Denies: Diabetes Mellitus Type 2 Renal/ Medical History: Denies: Chronic Kidney Disease, End Stage Renal Disease Malignancy Medical History: Reports: Other - Bladder cancer GI Medical History: Denies: Cirrhosis Musculoskeltal Medical History: Reports: Arthritis - Rheumatoid in back, pelvis, hips, Other - Chronic back pain Psychiatric Medical History: Reports: Tobacco Dependency Denies: Alcohol Dependency, Substance Abuse Hematology: Denies: Anemia, Bleeding Tendencies Infectious Medical History: Denies: Hepatitis C Past Surgical History Past Surgical History: Reports: Appendectomy, Cardiac Catheterization - 1X stent, Tonsillectomy, Other - Bladder surgery - oncology Social History Information Source: Patient Lives with: Spouse/Significant other Smoking Status: Current Every Day Smoker Cigarettes Packs Per Day: 0.7 Electronic Cigarette use?: No Number of Years Smokin Frequency of Alcohol Use: Occasional - 3x/week Last Alcohol Use: 07/08/20 Hx Recreational Drug Use: No Drugs: None Hx Prescription Drug Abuse: No - Advance Directive Resuscitation Status: Full Code Family History Family History: Hypertension Parental Family History Reviewed: Yes Children Family History Reviewed: Yes Sibling(s) Family History Reviewed.: Yes Medication/Allergy Home Medications: Aspirin [Adult Low Dose Aspirin EC] 81 mg PO Q2D 04/27/19 Hydrocodone/Acetaminophen [[place] 10-325 mg Tablet] 0.5 tab PO DAILYP PRN 04/27/19 Multivit-Minerals/FA/Lycopene [One Daily Men's Health Tablet] 1 each PO DAILY 04/27/19 Rabeprazole Sodium [Aciphex] 20 mg PO DAILYP PRN 04/27/19 Amox Tr/Potassium Clavulanate [Augmentin 875-125 mg Tablet] 1 tab PO BID #12 tablet 04/29/19 Allergies/Adverse Reactions: No Known Allergies Allergy (Verified 07/09/20 14:19) Review of Systems Constitutional: ABSENT: anorexia, chills, fatigue, headache(s), weakness Eyes: ABSENT: visual disturbances Ears: ABSENT: hearing changes Nose, Mouth, and Throat: ABSENT: headache(s), vertigo Cardiovascular: PRESENT: as per HPI, chest pain. ABSENT: edema, orthropnea, palpitations Respiratory: PRESENT: dyspnea. ABSENT: cough Gastrointestinal: ABSENT: abdominal pain, diarrhea, nausea, vomiting Genitourinary: ABSENT: difficulty urinating Musculoskeletal: PRESENT: back pain - chronic. ABSENT: muscle weakness Integumentary: ABSENT: diaphoresis Neurological: PRESENT: numbness, tingling. ABSENT: confusion, dizziness, vertigo, weakness Psychiatric: ABSENT: anxiety, depression Hematologic/Lymphatic: ABSENT: easy bleeding Physical Exam Vital Signs: Temp Pulse Resp BP Pulse Ox 98.3 F 80 24 H 155/94 H 94 07/09/20 14:15 07/09/20 12:26 07/09/20 16:01 07/09/20 16:01 07/09/20 16:01 Intake & Output 07/08/20 07/09/20 07/10/20 06:59 06:59 06:59 Weight 72.121 kg General appearance: PRESENT: no acute distress, cooperative, well-developed, well-nourished Head exam: PRESENT: atraumatic, normocephalic Eye exam: PRESENT: EOMI, PERRLA. ABSENT: scleral icterus Mouth exam: PRESENT: moist Neck exam: PRESENT: full ROM. ABSENT: JVD, lymphadenopathy, tenderness Respiratory exam: PRESENT: clear to auscultation murphy, symmetrical, unlabored. ABSENT: chest wall tenderness Cardiovascular exam: PRESENT: RRR, +S1, +S2. ABSENT: diastolic murmur, systolic murmur, tachycardia Pulses: PRESENT: normal radial pulses GI/Abdominal exam: PRESENT: normal bowel sounds, soft. ABSENT: tenderness Extremities exam: PRESENT: full ROM. ABSENT: pedal edema, tenderness Musculoskeletal exam: PRESENT: ambulatory, full ROM. ABSENT: deformity, disloc ation Neurological exam: PRESENT: alert, awake, oriented to person, oriented to place, oriented to time, oriented to situation, CN II-XII grossly intact. ABSENT: altered, motor sensory deficit Psychiatric exam: PRESENT: appropriate affect, normal mood Skin exam: PRESENT: dry, intact, normal color Results Laboratory Results: 07/09/20 13:46 07/09/20 13:46 07/09/20 07/09/20 07/09/20 13:46 13:46 14:12 WBC 9.5 RBC 4.97 Hgb 16.6 Hct 48.5 MCV 98 H MCH 33.5 H MCHC 34.3 RDW 13.6 Plt Count 264 Seg Neutrophils % 63.1 Sodium 137.8 Potassium 4.6 Chloride 101 Carbon Dioxide 31 H Anion Gap 6 BUN 12 Creatinine 0.87 Est GFR ( Amer) > 60 Glucose 86 Calcium 9.7 Total Bilirubin 0.8 AST 104 H Alkaline Phosphatase 81 Total Protein 7.5 Albumin 4.4 Urine Color YELLOW Urine Appearance CLEAR Urine pH 6.0 Ur Specific [place] 1.020 Urine Protein NEGATIVE Urine Glucose (UA) NEGATIVE Urine Ketones NEGATIVE Urine Blood SMALL H Urine Nitrite NEGATIVE Ur Leukocyte Esterase NEGATIVE Urine WBC (Auto) 1 Urine RBC (Auto) 5 07/09/20 07/09/20 13:46 15:56 Troponin I < 0.012 < 0.012 Impressions: Chest X-Ray 07/09/20 12:55 IMPRESSION: No acute cardiopulmonary process. Assessment and Plan - Diagnosis (1) Chest pain Qualifiers: Chest pain type: unspecified Qualified Code(s): R07.9 - Chest pain, unspecified Is this a current diagnosis for this admission?: Yes Plan: Episodic chest pain, possible unstable angina EKG without acute ST changes Negative Trop x2 Initiate statin, ASA, nitro prn Cardiology consulted, on board, appreciate recommendations. Echo ordered Admit to telemetry with repeat EKG in the morning. (2) Hyperlipemia Is this a current diagnosis for this admission?: Yes Plan: Hx HLD does not take statin at home Lipid panel in morning Statin as above. (3) GERD (gastroesophageal reflux disease) Is this a current diagnosis for this admission?: Yes Plan: Hx GERD, utilizes acipihex at home Cnt PPI. (4) Tobacco use Is this a current diagnosis for this admission?: Yes Plan: Reports >50 year history tobacco use. Smokes ~1/2ppd. Cessation counseling provided. Nicotine patch offered, patient defers. (5) History of bladder cancer Is this a current diagnosis for this admission?: Yes Plan: History bladder cancer. Receives BCG treatment, last treatment in May. Followed by Dr. Anurag Ngo, not intervention required at this time. - Time Time Spent with patient: 35 or more minutes Medications reviewed and adjusted accordingly: Yes Anticipated Discharge Disposition: Home, Self Care Anticipated Discharge Timeframe: within 48 hours
[2020-07-09] MEDS: NITROGLYCERIN 0.4 MG/TAB 25 TAB/BOTTLE SL PRN ×2 (21:18→21:36)
[2020-07-09] MEDS: ATORVASTATIN CALCIUM 80 MG TABLET PO SCH (21:22)
[2020-07-10] MEDS: NITROGLYCERIN 0.4 MG/TAB 25 TAB/BOTTLE SL PRN (05:15)
[2020-07-10] MEDS: PANTOPRAZOLE SODIUM 20 MG TABLET.DR PO SCH (05:15)
[2020-07-10 05:32] LABS: HEMATOCRIT 43.7 % (37.9-51.0); HEMOGLOBIN 14.9 g/dL (13.5-17.0); MEAN CORPUSCULAR HEMOGLOBIN 32.9 pg (27.0-33.4); MEAN CORPUSCULAR HGB CONC 34.1 g/dL (32.0-36.0); MEAN CORPUSCULAR VOLUME 97 fl (80-97); PLATELET COUNT 195 10^3/uL (150-450); RED BLOOD COUNT 4.52 10^6/uL (4.35-5.55); RED CELL DISTRIBUTION WIDTH 13.1 % (11.5-14.0); WHITE BLOOD COUNT 6.8 10^3/uL (4.0-10.5)
[2020-07-10 06:00] LABS: ANION GAP 6 (5-19); BLOOD UREA NITROGEN 12 mg/dL (7-20); CALCIUM 9.5 mg/dL (8.4-10.2); CARBON DIOXIDE 28 mmol/L (22-30); CHLORIDE 102 mmol/L (98-107); CHOLESTEROL 189.15 mg/dL (0-200); GLUCOSE 104 mg/dL (75-110); POTASSIUM 4.5 mmol/L (3.6-5.0); TRIGLYCERIDES 76 mg/dL (<150)
[2020-07-10 06:10] LABS: DIRECT LDL 126 mg/dL (<100)
[2020-07-10] MEDS: METOPROLOL SUCCINATE 25 MG TAB.SR.24H PO SCH (09:35)
[2020-07-10] MEDS: ASPIRIN 81 MG TABLET, ENT COATED PO SCH (09:35)
[2020-07-10] MEDS: LOSARTAN POTASSIUM 25 MG TABLET PO SCH (09:35)
[2020-07-10] MEDS: ENOXAPARIN SODIUM INJ 40 MG/0.4 ML DISP.SYRIN SUBCUT SCH (09:35)
--- NOTE | 2020-07-10 09:50 | EKG REPORT ---
SEVERITY:- ABNORMAL ECG - PACEMAKER SPIKES OR ARTIFACTS SINUS RHYTHM MINIMAL ST ELEVATION, ANTEROLATERAL LEADS : Confirmed by: Neli Mendez MD 10-Jul-2020 09:50:25
[2020-07-10] MEDS ORDERED: METOPROLOL SUCCINATE 25 MG TAB.SR.24H PO SCH (10:00)
[2020-07-10] MEDS ORDERED: ENOXAPARIN SODIUM INJ 30 MG/0.3 ML DISP.SYRIN SUBCUT SCH (10:00)
--- NOTE | 2020-07-10 10:46 | PDOC PROGRESS REPORT ---
Subjective Date:: 07/10/20 Subjective:: Patient claims to be doing fine. He has however not ambulated. Patient gives history of coronary intervention about 10 years ago. Patient continues to smoke at home. He has not been on a good regimen. This regimen is being optimized. When asked if he was ready to go home, he said he preferred to stay in and have his stress test before he would like to go home. A nuclear stress test is being scheduled. Patient is however noted to have some wheezing. Reason For Visit: CHEST PAIN Physical Exam Vital Signs: Temp Pulse Resp BP Pulse Ox 97.9 F 74 17 147/81 H 92 07/10/20 07:39 07/10/20 07:39 07/10/20 07:39 07/10/20 07:39 07/10/20 07:39 Intake & Output 07/09/20 07/10/20 07/11/20 06:59 06:59 06:59 Intake Total 710 Balance 710 Weight 73.1 kg Exam: GENERAL: well-nourished and in no acute distress. Alert and oriented x3 HEAD: Atraumatic, normocephalic. EYES: EVELYN, sclera anicteric, conjunctiva are normal. ENT: Moist mucous membranes. No oral ulcerations or bleeding gums noted. No obvious ear, nose or throat abnormalities noted. NECK: supple without lymphadenopathy. Trachea is central. No cervical or axillary lymphadenopathy noted. Carotids are 2+, JVD WNL LUNGS: Bilateral mild wheezes rales or rhonchi noted. No significant dullness noted on percussion. CHEST: Palpation of the chest wall shows no significant chest wall tenderness. 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 ABDOMEN: Soft, no significant tenderness appreciated, normoactive bowel sounds. No guarding, no rebound. No rigidity noted . No masses appreciated. EXTREMITIES: Pedal pulses are 1-2+, no calf tenderness noted. No clubbing or cyanosis. negative pedal edema noted NEUROLOGICAL: Focused neurological exam showed no significant neurologic deficit. Normal speech, no focal weakness appreciated. PSYCH: Normal mood, normal affect. Judgment and insight within normal limits. SKIN: No significant ecchymosis, skin is noted to be warm. MUSCULOSKELETAL EXAM: No significant acute joint swelling noted. Results Laboratory Results: 07/10/20 04:36 07/10/20 04:36 07/09/20 07/09/20 07/09/20 13:46 13:46 14:12 WBC 9.5 RBC 4.97 Hgb 16.6 Hct 48.5 MCV 98 H MCH 33.5 H MCHC 34.3 RDW 13.6 Plt Count 264 Seg Neutrophils % 63.1 Sodium 137.8 Potassium 4.6 Chloride 101 Carbon Dioxide 31 H Anion Gap 6 BUN 12 Creatinine 0.87 Est GFR ( Amer) > 60 Glucose 86 Calcium 9.7 Total Bilirubin 0.8 AST 104 H Alkaline Phosphatase 81 Total Protein 7.5 Albumin 4.4 Triglycerides Cholesterol LDL Cholesterol Direct VLDL Cholesterol HDL Cholesterol Urine Color YELLOW Urine Appearance CLEAR Urine pH 6.0 Ur Specific [place] 1.020 Urine Protein NEGATIVE Urine Glucose (UA) NEGATIVE Urine Ketones NEGATIVE Urine Blood SMALL H Urine Nitrite NEGATIVE Ur Leukocyte Esterase NEGATIVE Urine WBC (Auto) 1 Urine RBC (Auto) 5 07/10/20 07/10/20 04:36 04:36 WBC 6.8 RBC 4.52 Hgb 14.9 Hct 43.7 MCV 97 MCH 32.9 MCHC 34.1 RDW 13.1 Plt Count 195 Seg Neutrophils % Sodium 135.8 L Potassium 4.5 Chloride 102 Carbon Dioxide 28 Anion Gap 6 BUN 12 Creatinine 0.85 Est GFR ( Amer) > 60 Glucose 104 Calcium 9.5 Total Bilirubin AST Alkaline Phosphatase Total Protein Albumin Triglycerides 76 Cholesterol 189.15 LDL Cholesterol Direct 126 H VLDL Cholesterol 15.0 HDL Cholesterol 47 Urine Color Urine Appearance Urine pH Ur Specific [place] Urine Protein Urine Glucose (UA) Urine Ketones Urine Blood Urine Nitrite Ur Leukocyte Esterase Urine WBC (Auto) Urine RBC (Auto) 07/09/20 07/09/20 13:46 15:56 Troponin I < 0.012 < 0.012 EKG Comments: Telemetry shows sinus rhythm. Twelve-lead EKG without any acute ST-T wave changes. Impressions: Chest X-Ray 07/09/20 12:55 IMPRESSION: No acute cardiopulmonary process. Assessment & Plan - Diagnosis (1) Coronary artery disease Qualifiers: Coronary Disease-Associated Artery/Lesion type: [place] artery [place] vs. transplanted heart: [place] heart Associated angina: with unstable angina Qualified Code(s): I25.110 - Atherosclerotic heart disease of [place] coronary artery with unstable angina pectoris Is this a current diagnosis for this admission?: Yes (2) Chest pain Qualifiers: Chest pain type: unspecified Qualified Code(s): R07.9 - Chest pain, unspeci fied Is this a current diagnosis for this admission?: Yes (3) GERD (gastroesophageal reflux disease) Qualifiers: Esophagitis presence: esophagitis presence not specified Qualified Code(s): K21.9 - Gastro-esophageal reflux disease without esophagitis Is this a current diagnosis for this admission?: Yes (4) Hyperlipemia Qualifiers: Hyperlipidemia type: unspecified Qualified Code(s): E78.5 - Hyperlipidemia, unspecified Is this a current diagnosis for this admission?: Yes (5) Tobacco use Is this a current diagnosis for this admission?: Yes - Notes Notes: Patient has known coronary artery disease. He had a coronary intervention several years ago. Patient continues to smoke and has not been on statin. Feel patient has unstable angina but currently seems to be stabilizing. Patient does prefer to undergo a nuclear stress testing which is being scheduled. For risk stratification I have also ordered a 2D echocardiogram. Agree with placing patient on statins, beta-andie, aspirin, proton pump inhibitor. Patient has been counseled about tobacco cessation. 3 minutes spent. Patient has other comorbid diagnoses such as COPD, asthma, will start patient on inhaler therapy. Patient advised to report any recurrent chest pain. - Time Time with patient: Greater than 35 minutes Medications reviewed and adjusted accordingly: Yes
[2020-07-10] MEDS ORDERED: CLOPIDOGREL BISULFATE 300 MG TABLET PO ONE (11:30)
[2020-07-10] MEDS ORDERED: NICOTINE 21 MG/24 HR PATCH.TD24 TD PRN (11:54)
--- NOTE | 2020-07-10 18:23 | XCELERA REPORT ---
[address] [address] Transthoracic Echocardiogram Report Name: HALLEY MCGREGOR Age: 69 yrs Gender: Male : 1950 Patient Status: Inpatient Patient Location: [facility]^A Study Date: 07/09/2020 07:33 PM Height: 65 in Weight: 159 lb BSA: 1.8 m2 Procedure: A complete two-dimensional transthoracic echocardiogram was performed (2D, M-mode, spectral and color flow Doppler). The study was technically adequate with some images being suboptimal in quality. Reason For Study: CHEST PAIN Ordering Physician: KIM PALMER Performed By: Matilda Hanks Interpretation Summary Interpretation Summary TRANS THORACIC ECHOCARDIOGRAM FINDINGS: Technically fair to difficult study. LEFT VENTRICLE: LV Systolic function: LVEF is felt to be within normal limits. Best estimate is approximately LVEF is 60 %. LV Diastolic Function: Not adequate assessed. Wall motion : Not all wall segment were well visualized. However basal inferior wall akinesia noted. Left ventricular chamber size : is within normal limit. Left ventricular wall thickness : WNL. INTERVENTRICULAR SEPTUM: no evidence of VSD noted. No asymmetric hypertrophy noted. RIGHT VENTRICLE: RV systolic function : is felt to be within normal limit. Right Ventricle Size : WNL . LEFT ATRIUM size : Borderline dilated. RIGHT ATRIUM size : is within normal limit. INTER ATRIAL SEPTUM : No definite atrial septal defect noted however a small PFO could be missed. AORTIC ROOT : seems to be within normal limits. Ascending aorta is not well visualized. INFERIOR VENA CAVA: WNL with normal phasic respiratory variation. VALVES: MITRAL VALVE : Leaflets are mildly thickened. Mobility seems to be within normal limits. Mitral Regurgitation : Trace mitral regurgitation is noted. Mitral Stenosis: No mitral stenosis noted. Mitral valve prolapse : none noted. AORTIC VALVE: seems to be trileaflet with thickening but adequate excursion. Aortic stenosis : No aortic stenosis noted. Aortic regurgitation : No aortic incompetence noted. TRICUSPID VALVE : mobility and structures within normal limit. Tricuspid stenosis : no tricuspid stenosis noted. Tricuspid regurgitation : Trace tricuspid regurgitation noted. Estimated RVSP : tricuspid jet envelope not well defined to measure RV systolic pressure accurately. PULMONARY VALVE : was not well visualized but no significant abnormalities suspected. Pulmonary stenosis : no significant pulmonary stenosis noted. Pulmonary regurgitation : no significant pulmonary regurgitation noted. MASSES AND THROMBUS : No definite intracardiac thrombus or masses are noted. PERICARDIUM: Minimal pericardial effusion was noted. IMPRESSION : 1. Normal LVEF. 2. Normal LV wall thickness noted. 3. Diastolic function not adequately assessed. 4. No significant valvular stenosis or regurgitation noted. MMode/2D Measurements & Calculations RVDd: 2.0 cm LVIDd: 4.8 cm FS: 34.4 % Ao root diam: 2.7 cm IVSd: 0.84 cm LVIDs: 3.1 cm EDV(Teich): 105.8 ml Ao root area: 5.7 cm2 LVPWd: 0.83 cm ESV(Teich): 38.7 ml EF(Teich): 63.4 % Doppler Measurements & Calculations MV E max ben: MV dec slope: Ao V2 max: LV V1 max P.8 cm/sec 271.2 cm/sec2 127.9 cm/sec 4.8 mmHg MV A max ben: MV dec time: 0.26 sec Ao max PG: LV V1 max: 98.5 cm/sec 6.5 mmHg 109.2 cm/sec MV E/A: 0.72 PA V2 max: TR max ben: 68.3 cm/sec 245.3 cm/sec PA max P.9 mmHgTR max P.1 mmHg : KIM PALMER Shyamal
[2020-07-10] MEDS ORDERED: ALBUTEROL SULFATE HFA (90 MCG/PUFF) 8 GM MDI IH PRN (20:13)
--- NOTE | 2020-07-10 20:13 | PDOC PROGRESS REPORT ---
Subjective Date:: 07/10/20 Subjective:: NAEO Reason For Visit: CHEST PAIN Physical Exam Vital Signs: Temp Pulse Resp BP Pulse Ox 97.8 F 55 L 18 120/88 H 93 07/10/20 15:39 07/10/20 15:39 07/10/20 15:39 07/10/20 15:39 07/10/20 15:39 Intake & Output 07/09/20 07/10/20 07/11/20 06:59 06:59 06:59 Intake Total 710 1308 Balance 710 1308 Weight 73.1 kg General appearance: PRESENT: no acute distress, cooperative Eye exam: ABSENT: scleral icterus Mouth exam: PRESENT: moist Throat exam: ABSENT: post pharyngeal erythema Neck exam: ABSENT: JVD Respiratory exam: PRESENT: clear to auscultation murphy Cardiovascular exam: PRESENT: RRR GI/Abdominal exam: PRESENT: normal bowel sounds, soft. ABSENT: tenderness Extremities exam: ABSENT: pedal edema Musculoskeletal exam: PRESENT: ambulatory Neurological exam: PRESENT: alert, awake Psychiatric exam: PRESENT: appropriate affect Skin exam: ABSENT: jaundice, rash Results Laboratory Results: 07/10/20 04:36 07/10/20 04:36 07/10/20 07/10/20 04:36 04:36 WBC 6.8 RBC 4.52 Hgb 14.9 Hct 43.7 MCV 97 MCH 32.9 MCHC 34.1 RDW 13.1 Plt Count 195 Sodium 135.8 L Potassium 4.5 Chloride 102 Carbon Dioxide 28 Anion Gap 6 BUN 12 Creatinine 0.85 Est GFR ( Amer) > 60 Glucose 104 Calcium 9.5 Triglycerides 76 Cholesterol 189.15 LDL Cholesterol Direct 126 H VLDL Cholesterol 15.0 HDL Cholesterol 47 07/09/20 07/09/20 13:46 15:56 Troponin I < 0.012 < 0.012 Impressions: Chest X-Ray 07/09/20 12:55 IMPRESSION: No acute cardiopulmonary process. Assessment and Plan - Diagnosis (1) Angina pectoris Is this a current diagnosis for this admission?: Yes (2) Coronary artery disease Qualifiers: Coronary Disease-Associated Artery/Lesion type: [place] artery [place] vs. transplanted heart: [place] heart Associated angina: with unstable angina Qualified Code(s): I25.110 - Atherosclerotic heart disease of [place] coronary artery with unstable angina pectoris Is this a current diagnosis for this admission?: Yes (3) Hyperlipemia Qualifiers: Hyperlipidemia type: unspecified Qualified Code(s): E78.5 - Hyperlipidemia, unspecified Is this a current diagnosis for this admission?: Yes (4) Tobacco use Is this a current diagnosis for this admission?: Yes (5) ETOH abuse Is this a current diagnosis for this admission?: Yes - Plan Summary Summary: HALLEY MCGREGOR is a 69 year old male with PMH CAD s/p IA in 1999, s/p PCI to RCA, tobacco abuse, alcohol abuse, who presented to the ED 07/09/2020 with reports of episodic pressure-like chest pain x2 weeks which he describes as substernal, tight, crushing chest pain that radiates down into his left arm lasting no more than 5 minutes in duration. Reports associated SOB. Resolves without intervention. Last stress test was ~6 years ago for surgical clearance. He takes only a baby ASA and is not on any other cardiac medications. Angina Pectoris: EKG without ST changes and negative troponin x2. However, patient has a very classic description of his chest pain that is concerning for cardiac origin and he has multiple risk factors (age, male, known CAD, smoking). TTE showed normal EF with inferior wall akinesia; it's unclear if this is old or new. Cardiology consulted and recommended to perform stress test and maximize medical therapy. - continue ASA - start Plavix, BB, ARB and statin therapy Tobacco Abuse - cessation counseling provided - nicotine patches PRN Alcohol Abuse: he drinks 2 beers and 1 shot of liquor every 2 days. He has no prior h/o withdrawal symptoms. - cessation counseling provided Overweight (BMI 27) - counseled on weight loss, diet, exercise DVT ppx: Lovenox - Time Time Spent with patient: 35 or more minutes Anticipated Discharge Disposition: Home, Self Care Anticipated Discharge Timeframe: within 24 hours
[2020-07-11] MEDS: ATORVASTATIN CALCIUM 80 MG TABLET PO SCH (00:25)
[2020-07-11] MEDS: PANTOPRAZOLE SODIUM 20 MG TABLET.DR PO SCH (05:34)
[2020-07-11] MEDS ORDERED: CLOPIDOGREL BISULFATE 300 MG TABLET PO SCH (10:00)
[2020-07-11] MEDS ORDERED: CLOPIDOGREL BISULFATE 75 MG TABLET PO SCH (10:00)
[2020-07-11] MEDS: ENOXAPARIN SODIUM INJ 40 MG/0.4 ML DISP.SYRIN SUBCUT SCH (10:15)
[2020-07-11] MEDS: ASPIRIN 81 MG TABLET, ENT COATED PO SCH (10:19)
[2020-07-11] MEDS: METOPROLOL SUCCINATE 25 MG TAB.SR.24H PO SCH (10:19)
[2020-07-11] MEDS: LOSARTAN POTASSIUM 25 MG TABLET PO SCH (10:21)
--- NOTE | 2020-07-11 10:24 | EKG REPORT ---
SEVERITY:- NORMAL ECG - SINUS RHYTHM : Confirmed by: Neli Mendez MD 11-Jul-2020 10:24:23
[2020-07-11 10:38] VITALS: BP 151/90
--- NOTE | 2020-07-11 11:24 | PDOC PROGRESS REPORT ---
Subjective Date:: 07/11/20 Subjective:: Patient claims to be doing fine. Patient claims to have ambulated and has done well.. Patient gives history of coronary intervention about 10 years ago. Patient continues to smoke at home. He has not been on a good regimen. This regimen is being optimized. Patient was scheduled to have a nuclear stress test this morning but he ate a full breakfast. A nuclear stress test therefore could not be performed. Patient has remained stable during this hospitalization without any recurrent chest pain. He is therefore being discharged home. Reason For Visit: CHEST PAIN Physical Exam Vital Signs: Temp Pulse Resp BP Pulse Ox 98.0 F 69 16 151/90 H 94 07/11/20 10:35 07/11/20 10:35 07/11/20 10:35 07/11/20 10:35 07/11/20 10:35 Intake & Output 07/10/20 07/11/20 07/12/20 06:59 06:59 06:59 Intake Total 710 1308 235 Balance 710 1308 235 Weight 73.1 kg 73.1 kg Exam: GENERAL: well-nourished and in no acute distress. Alert and oriented x3 HEAD: Atraumatic, normocephalic. EYES: EVELYN, sclera anicteric, conjunctiva are normal. ENT: Moist mucous membranes. No oral ulcerations or bleeding gums noted. No obvious ear, nose or throat abnormalities noted. NECK: supple without lymphadenopathy. Trachea is central. No cervical or axillary lymphadenopathy noted. Carotids are 2+, JVD WNL LUNGS: Breath sounds clear bilaterally. No wheezes rales or rhonchi noted. No significant dullness noted on percussion. CHEST: Palpation of the chest wall shows no significant chest wall tenderness. 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 ABDOMEN: Soft, no significant tenderness appreciated, normoactive bowel sounds. No guarding, no rebound. No rigidity noted . No masses appreciated. EXTREMITIES: Pedal pulses are 1-2+, no calf tenderness noted. No clubbing or cyanosis. negative pedal edema noted NEUROLOGICAL: Focused neurological exam showed no significant neurologic deficit. Normal speech, no focal weakness appreciated. PSYCH: Normal mood, normal affect. Judgment and insight within normal limits. SKIN: No significant ecchymosis, skin is noted to be warm. MUSCULOSKELETAL EXAM: No significant acute joint swelling noted. Results Laboratory Results: 07/10/20 04:36 07/10/20 04:36 07/09/20 07/09/20 13:46 15:56 Troponin I < 0.012 < 0.012 EKG Comments: Patient noted to be maintaining sinus rhythm. No significant cardiac dysrhythmias noted. Impressions: Chest X-Ray 07/09/20 12:55 IMPRESSION: No acute cardiopulmonary process. Assessment & Plan - Diagnosis (1) Coronary artery disease Qualifiers: Coronary Disease-Associated Artery/Lesion type: [place] artery [place] vs. transplanted heart: [place] heart Associated angina: with unstable angina Qualified Code(s): I25.110 - Atherosclerotic heart disease of [place] coronary artery with unstable angina pectoris Is this a current diagnosis for this admission?: Yes (2) Chest pain Qualifiers: Chest pain type: unspecified Qualified Code(s): R07.9 - Chest pain, unspecified Is this a current diagnosis for this admission?: Yes (3) GERD (gastroesophageal reflux disease) Qualifiers: Esophagitis presence: esophagitis presence not specified Qualified Code(s): K21.9 - Gastro-esophageal reflux disease without esophagitis Is this a current diagnosis for this admission?: Yes (4) Hyperlipemia Qualifiers: Hyperlipidemia type: unspecified Qualified Code(s): E78.5 - Hyperlipidemia, unspecified Is this a current diagnosis for this admission?: Yes (5) Tobacco use Is this a current diagnosis for this admission?: Yes - Notes Notes: Patient noted to be stable. Given his normal cardiac enzymes, normal EKG, most likely diagnosis is distal esophagitis but cannot rule out unstable angina. However this has now been stabilized and it is felt that patient is safe for discharge. Patient's troponin has been negative. Patient was advised on smoking cessation. He should continue OTC proton pump inhibitor or other antacids/H2 blockers. He should start on beta-andie, hypotensive statin. Patient was given aspirin and Plavix to continue for at least 1 month. Patient to report any further problems. Patient advised to go to the ER if there is any recurrence of chest pain lasting more than 15 to 20 minutes and happening on rest. Patient has an appointment to follow-up with me tomorrow in the office. - Time Time with patient: 15-25 minutes Smoking Education Provided: Over 3 minutes Medications reviewed and adjusted accordingly: Yes
--- NOTE | 2020-07-11 11:33 | PDOC CONSULTATION ---
Consultation Consult Date: 07/10/20 Attending physician:: ALEXIS CAROLINA Provider Consulted: KADIE HERRMANN Consult reason:: chest pain History of Present Illness Admission Date/PCP: 07/09/20 16:58 ALINA BHATIA MD Patient complains of: Chest pain History of Present Illness: HALLEY MCGREGOR is a 69 year old male with PMH [place] (2000 with angioplasty and stent placement) who presented to the ED today with reports of 3 separate episodes of chest pain in the past 2 weeks which he describes as substernal, tight, crushing chest pain that radiates down into his left arm lasting no more than 5 minutes in duration. Reports associated SOB. Resolves without intervention. At current has some occasional pain left chest wall and left axilla region. Described as a quick tinge, lasting seconds in duration. Denies associated dizziness, fatigue, lightheadness, diaphoresis, nausea, or vomiting. He is not followed by a net mender. Last stress test was ~6 years ago for surgical clearance. Evaluation in the ED patient found to have EKG without ST changes and negative troponin x2. Cardiology was consulted by ED and recommended patient admit for further evaluation and treatment. This history obtained by the hospitalist was reviewed and confirmed. Patient has had no recurrence of chest pain since Admission. He has however been noted to have some wheezing which she claims is chronic for him. Past Medical History Cardiac Medical History: Reports: Coronary Artery Disease - Stent 2001, Myocardial Infarction - 2001, Hyperlipidema Denies: Congestive Heart Failure, DVT, Hypertension, Pulmonary Embolism Pulmonary Medical History: Reports: Asthma - CHILDHOOD, Bronchitis, Chronic Obstructive Pulmonary Disease (COPD) Denies: Pneumonia Neurological Medical History: Denies: Hemorrhagic CVA, Ischemic CVA, Seizures Endocrine Medical History: Denies: Diabetes Mellitus Type 2 Renal/ Medical History: Denies: Chronic Kidney Disease, End Stage Renal Disease Malignancy Medical History: Reports: Other - Bladder cancer GI Medical History: Denies: Cirrhosis Musculoskeltal Medical History: Reports: Arthritis - Rheumatoid in back, pelvis, hips, Other - Chronic back pain Psychiatric Medical History: Reports: Tobacco Dependency Denies: Alcohol Dependency, Depression, Substance Abuse Hematology: Denies: Anemia, Bleeding Tendencies Infectious Medical History: Denies: Hepatitis C Past Surgical History Past Surgical History: Reports: Appendectomy, Cardiac Catheterization - 1X stent, Tonsillectomy, Other - Bladder surgery - oncology Social History Information Source: Patient Lives with: Spouse/Significant other Smoking Status: Current Every Day Smoker Cigarettes Packs Per Day: 0.7 Electronic Cigarette use?: No Number of Years Smokin Frequency of Alcohol Use: Occasional - 3x/week Hx Recreational Drug Use: No Drugs: None Hx Prescription Drug Abuse: No - Advance Directive Resuscitation Status: Full Code Family History Family History: None, Hypertension Parental Family History Reviewed: Yes Children Family History Reviewed: Yes Sibling(s) Family History Reviewed.: Yes Medication/Allergy Home Medications: Hydrocodone/Acetaminophen [[place] 10-325 mg Tablet] 0.5 tab PO DAILYP PRN 04/27/19 Multivit-Minerals/FA/Lycopene [One Daily Men's Health Tablet] 1 each PO DAILY 04/27/19 Rabeprazole Sodium [Aciphex] 20 mg PO DAILY 04/27/19 Aspirin [Adult Low Dose Aspirin EC] 81 mg PO DAILY #30 07/11/20 Atorvastatin Calcium [Lipitor 80 mg Tablet] 80 mg PO QHS #30 tablet 07/11/20 Clopidogrel Bisulfate [Plavix 75 mg Tablet] 75 mg PO DAILY #30 tablet 07/11/20 Losartan Potassium [Cozaar 25 mg Tablet] 25 mg PO DAILY #30 tablet 07/11/20 Metoprolol Succinate [Toprol Xl 25 mg Tab.sr] 25 mg PO DAILY #30 tab.sr.24h 07/11/20 Allergies/Adverse Reactions: No Known Allergies Allergy (Verified 07/09/20 14:19) Review of Systems Constitutional: ABSENT: chills, fever(s), headache(s), weight gain, weight loss Eyes: ABSENT: visual disturbances Ears: ABSENT: hearing changes Cardiovascular: PRESENT: chest pain, dyspnea on exertion. ABSENT: edema, orthropnea, palpitations Respiratory: ABSENT: cough, hemoptysis Gastrointestinal: PRESENT: heartburn. ABSENT: abdominal pain, constipation, diarrhea, hematemesis, hematochezia, nausea, vomiting Genitourinary: ABSENT: dysuria, hematuria Musculoskeletal: ABSENT: joint swelling Integumentary: ABSENT: rash, wounds Neurological: ABSENT: abnormal gait, abnormal speech, confusion, dizziness, focal weakness, syncope Psychiatric: ABSENT: anxiety, depression, homidical ideation, suicidal ideation Endocrine: ABSENT: cold intolerance, heat intolerance, polydipsia, polyuria Hematologic/Lymphatic: ABSENT: easy bleeding, easy bruising Physical Exam Vital Signs: Temp Pulse Resp BP Pulse Ox 98.0 F 69 16 151/90 H 94 07/11/20 10:35 07/11/20 10:35 07/11/20 10:35 07/11/20 10:35 07/11/20 10:35 Intake & Output 07/10/20 07/11/20 07/12/20 06:59 06:59 06:59 Intake Total 710 1308 235 Balance 710 1308 235 Weight 73.1 kg 73.1 kg Results Laboratory Results: 07/10/20 04:36 07/10/20 04:36 07/09/20 07/09/20 13:46 15:56 Troponin I < 0.012 < 0.012 Impressions: Chest X-Ray 07/09/20 12:55 IMPRESSION: No acute cardiopulmonary process. Assessment & Plan - Diagnosis (1) Coronary artery disease Qualifiers: Coronary Disease-Associated Artery/Lesion type: [place] artery [place] vs. transplanted heart: [place] heart Associated angina: with unstable angina Qualified Code(s): I25.110 - Atherosclerotic heart disease of [place] coronary artery with unstable angina pectoris Is this a current diagnosis for this admission?: Yes (2) Chest pain Qualifiers: Chest pain type: unspecified Qualified Code(s): R07.9 - Chest pain, unspecified Is this a current diagnosis for this admission?: Yes (3) GERD (gastroesophageal reflux disease) Qualifiers: Esophagitis presence: esophagitis presence not specified Qualified Code(s): K21.9 - Gastro-esophageal reflux disease without esophagitis Is this a current diagnosis for this admission?: Yes (4) Hyperlipemia Qualifiers: Hyperlipidemia type: unspecified Qualified Code(s): E78.5 - Hyperlipidemia, unspecified Is this a current diagnosis for this admission?: Yes (5) Tobacco use Is this a current diagnosis for this admission?: Yes - Notes Notes: Patient has known coronary artery disease. He had a coronary intervention several years ago. Patient continues to smoke and has not been on statin. Feel patient has unstable angina but currently seems to be stabilizing. Patient does prefer to undergo a nuclear stress testing which is being scheduled. For risk stratification I have also ordered a 2D echocardiogram. Agree with placing patient on statins, beta-andie, aspirin, proton pump inhibitor. Patient has been counseled about tobacco cessation. 3 minutes spent. Patient has other comorbid diagnoses such as COPD, asthma, will start patient on inhaler therapy. Patient advised to report any recurrent chest pain.
--- NOTE | 2020-07-11 20:21 | PDOC DISCHARGE SUMMARY ---
Impression - Admit/DC Date/PCP Admission Date/Primary Care Provider: 07/09/20 16:58 ALINA BHATIA MD Discharge Date: 07/11/20 - Discharge Diagnosis (1) Angina pectoris Is this a current diagnosis for this admission?: Yes (2) Coronary artery disease Is this a current diagnosis for this admission?: Yes (3) Hyperlipemia Is this a current diagnosis for this admission?: Yes (4) Tobacco use Is this a current diagnosis for this admission?: Yes (5) ETOH abuse Is this a current diagnosis for this admission?: Yes - Assessment Summary: HALLEY MCGREGOR is a 69 year old male with PMH CAD s/p [place] in 1999, s/p PCI to RCA, tobacco abuse, alcohol abuse, who presented to the ED 07/09/2020 with reports of episodic pressure-like chest pain x2 weeks which he describes as substernal, tight, crushing chest pain that radiates down into his left arm lasting no more than 5 minutes in duration. Reports associated SOB. Occurs with exertion. Resolves with rest. Last stress test was ~6 years ago for surgical clearance. He takes only a baby ASA and is not on any other cardiac medications. Angina Pectoris: EKG without ST changes and negative troponin x2. However, patient has a very classic description of his chest pain that is concerning for cardiac origin and he has multiple risk factors (age, male, known CAD, smoking). TTE showed normal EF with inferior wall akinesia; per cardiology, this is likely old given that it's in the same region as his prior [place]. Cardiology consulted and recommended to maximize medical therapy with ASA/Plavix, BB, ARB and statin therapy. Patient will follow up with cardiology as outpatient tomorrow, 07/12, and plan is for outpatient stress test. Tobacco Abuse: >6 minutes of cessation counseling provided. Nicotine patches provided, although patient declined. Alcohol Abuse: he drinks 2 beers and 1 shot of liquor every 2 days. He has no prior h/o withdrawal symptoms. Cessation counseling provided. Overweight (BMI 27): counseled on weight loss, diet, exercise. GERD: continue PPI therapy. - Additional Information Resuscitation Status: Full Code Discharge Diet: Cardiac Discharge Activity: Activity As Tolerated Referrals: ALINA BHATIA MD [Primary Care Provider] - 07/11/20 9:36 am (OFFICE WILL CONTACT THE PATIENT WITH A FOLLOW UP APPT) KADIE HERRMANN MD [ACTIVE STAFF] - 07/12/20 12:30 pm ([employer]) Prescriptions: Aspirin [Adult Low Dose Aspirin EC] 81 mg PO DAILY #30 Losartan Potassium [Cozaar 25 mg Tablet] 25 mg PO DAILY #30 tablet Atorvastatin Calcium [Lipitor 80 mg Tablet] 80 mg PO QHS #30 tablet Clopidogrel Bisulfate [Plavix 75 mg Tablet] 75 mg PO DAILY #30 tablet Metoprolol Succinate [Toprol Xl 25 mg Tab.sr] 25 mg PO DAILY #30 tab.sr.24h Home Medications: Hydrocodone/Acetaminophen [[place] 10-325 mg Tablet] 0.5 tab PO DAILYP PRN 04/27/19 Multivit-Minerals/FA/Lycopene [One Daily [employer] Pixafy Tablet] 1 each PO DAILY 04/27/19 Rabeprazole Sodium [Aciphex] 20 mg PO DAILY 04/27/19 Aspirin [Adult Low Dose Aspirin EC] 81 mg PO DAILY #30 07/11/20 Atorvastatin Calcium [Lipitor 80 mg Tablet] 80 mg PO QHS #30 tablet 07/11/20 Clopidogrel Bisulfate [Plavix 75 mg Tablet] 75 mg PO DAILY #30 tablet 07/11/20 Losartan Potassium [Cozaar 25 mg Tablet] 25 mg PO DAILY #30 tablet 07/11/20 Metoprolol Succinate [Toprol Xl 25 mg Tab.sr] 25 mg PO DAILY #30 tab.sr.24h 07/11/20 History of Present Illiness History of Present Illness: HALLEY MCGREGOR is a 69 year old male Physical Exam Vital Signs: Temp Pulse Resp BP Pulse Ox 98.0 F 69 16 151/90 H 94 07/11/20 10:35 07/11/20 10:35 07/11/20 10:35 07/11/20 10:35 07/11/20 10:35 Intake & Output 07/10/20 07/11/20 07/12/20 06:59 06:59 06:59 Intake Total 710 1308 235 Balance 710 1308 235 Weight 73.1 kg 73.1 kg Results Laboratory Results: WBC 6.8 10^3/uL (4.0-10.5) 07/10/20 04:36 RBC 4.52 10^6/uL (4.35-5.55) 07/10/20 04:36 Hgb 14.9 g/dL (13.5-17.0) 07/10/20 04:36 Hct 43.7 % (37.9-51.0) 07/10/20 04:36 MCV 97 fl (80-97) 07/10/20 04:36 MCH 32.9 pg (27.0-33.4) 07/10/20 04:36 MCHC 34.1 g/dL (32.0-36.0) 07/10/20 04:36 RDW 13.1 % (11.5-14.0) 07/10/20 04:36 Plt Count 195 10^3/uL (150-450) 07/10/20 04:36 Lymph % (Auto) 25.3 % (13-45) 07/09/20 13:46 [place] % (Auto) 7.8 % (3-13) 07/09/20 13:46 Eos % (Auto) 2.6 % (0-6) 07/09/20 13:46 Baso % (Auto) 1.2 % (0-2) 07/09/20 13:46 Absolute Neuts (auto) 6.0 10^3/uL (1.7-8.2) 07/09/20 13:46 Absolute Lymphs (auto) 2.4 10^3/uL (0.5-4.7) 07/09/20 13:46 Absolute Monos (auto) 0.7 10^3/uL (0.1-1.4) 07/09/20 13:46 Absolute Eos (auto) 0.2 10^3/uL (0.0-0.6) 07/09/20 13:46 Absolute Basos (auto) 0.1 10^3/uL (0.0-0.2) 07/09/20 13:46 Seg Neutrophils % 63.1 % (42-78) 07/09/20 13:46 Sodium 135.8 mmol/L (137-145) L 07/10/20 04:36 Potassium 4.5 mmol/L (3.6-5.0) 07/10/20 04:36 Chloride 102 mmol/L (98-107) 07/10/20 04:36 Carbon Dioxide 28 mmol/L (22-30) 07/10/20 04:36 Anion Gap 6 (5-19) 07/10/20 04:36 BUN 12 mg/dL (7-20) 07/10/20 04:36 Creatinine 0.85 mg/dL (0.52-1.25) 07/10/20 04:36 Est GFR ( Amer) > 60 (>60) 07/10/20 04:36 Est GFR (MDRD) Non-Af > 60 (>60) 07/10/20 04:36 Glucose 104 mg/dL (75-110) 07/10/20 04:36 Calcium 9.5 mg/dL (8.4-10.2) 07/10/20 04:36 Total Bilirubin 0.8 mg/dL (0.2-1.3) 07/09/20 13:46 Direct Bilirubin 0.2 mg/dL (0.0-0.4) 07/09/20 13:46 Neonat Total Bilirubin Not Reportable 07/09/20 13:46 Neonat Direct Bilirubin Not Reportable 07/09/20 13:46 Neonat Indirect Bili Not Reportable 07/09/20 13:46 AST 104 U/L (17-59) H 07/09/20 13:46 ALT 169 U/L (<50) H 07/09/20 13:46 Alkaline Phosphatase 81 U/L (38-126) 07/09/20 13:46 Troponin I < 0.012 ng/mL 07/09/20 15:56 Total Protein 7.5 g/dL (6.3-8.2) 07/09/20 13:46 Albumin 4.4 g/dL (3.5-5.0) 07/09/20 13:46 Triglycerides 76 mg/dL (<150) 07/10/20 04:36 Cholesterol 189.15 mg/dL (0-200) 07/10/20 04:36 LDL Cholesterol Direct 126 mg/dL (<100) H 07/10/20 04:36 VLDL Cholesterol 15.0 mg/dL (10-31) 07/10/20 04:36 HDL Cholesterol 47 mg/dL (>40) 07/10/20 04:36 Urine Color YELLOW 07/09/20 14:12 Urine Appearance CLEAR 07/09/20 14:12 Urine pH 6.0 (5.0-9.0) 07/09/20 14:12 Ur Specific Marty 1.020 07/09/20 14:12 Urine Protein NEGATIVE mg/dL (NEGATIVE) 07/09/20 14:12 Urine Glucose (UA) NEGATIVE mg/dL (NEGATIVE) 07/09/20 14:12 Urine Ketones NEGATIVE mg/dL (NEGATIVE) 07/09/20 14:12 Urine Blood SMALL (NEGATIVE) H 07/09/20 14:12 Urine Nitrite NEGATIVE (NEGATIVE) 07/09/20 14:12 Urine Bilirubin NEGATIVE (NEGATIVE) 07/09/20 14:12 Urine Urobilinogen NEGATIVE mg/dL (<2.0) 07/09/20 14:12 Ur Leukocyte Esterase NEGATIVE (NEGATIVE) 07/09/20 14:12 Urine WBC (Auto) 1 /HPF 07/09/20 14:12 Urine RBC (Auto) 5 /HPF 07/09/20 14:12 Urine Mucus (Auto) OCC /LPF 07/09/20 14:12 Urine Ascorbic Acid NEGATIVE (NEGATIVE) 07/09/20 14:12 07/09/20 07/09/20 13:46 15:56 Troponin I < 0.012 < 0.012 Impressions: Chest X-Ray 07/09/20 12:55 IMPRESSION: No acute cardiopulmonary process. Stroke Is this a Stroke Patient?: No Acute Heart Failure Is this a Heart Failure Patient?: No
== END 2020-07-11 10:50 | disposition home or self-care (01) ==
LOC: ER 11:47 → EH 16:58 → 4N 18:32
PROVIDERS: ADMIT Hospitalist; ATTEND Hospitalist
DX: I25.110 Atherosclerotic heart disease of native coronary artery with unstable angina pectoris (principal); E78.5 Hyperlipidemia, unspecified; F17.200 Nicotine dependence, unspecified, uncomplicated; F10.10 Alcohol abuse, uncomplicated; E66.3 Overweight; K21.9 Gastro-esophageal reflux disease without esophagitis; C67.9 Malignant neoplasm of bladder, unspecified; G89.29 Other chronic pain; M54.9 Dorsalgia, unspecified; J44.9 Chronic obstructive pulmonary disease, unspecified; R20.0 Anesthesia of skin; R20.2 Paresthesia of skin; I10 Essential (primary) hypertension; I25.2 Old myocardial infarction; F17.210 Nicotine dependence, cigarettes, uncomplicated; Z95.5 Presence of coronary angioplasty implant and graft; Z79.82 Long term (current) use of aspirin; M06.89 Other specified rheumatoid arthritis, multiple sites; Z79.891 Long term (current) use of opiate analgesic; Z68.27 Body mass index [BMI] 27.0-27.9, adult; Z82.49 Family history of ischemic heart disease and other diseases of the circulatory system; Z90.49 Acquired absence of other specified parts of digestive tract
CPT/HCPCS: 93005 ×3; 99285; 36415 ×2; 85025; 85027; 80048; 80053; 81001; 84484; 80061; 93306; 71045; 93010 ×3; 99406; G0378 ×3; A9270 ×13; J1650; J3490 ×3